=== PATIENT | female | born 1980 | race Caucasian/White ===

== ENCOUNTER 2020-04-25 14:50 | Outpatient (REF) | payer MEDICAID, SELFPAY | END 2020-04-25 14:51 | disposition home or self-care (01) | LOC: HO.LAB 14:50 | PROVIDERS: PCP Nurse Practitioner Family; Visit Provider Student in an Organized Health Care Education/Training Program | DX: R76.8 Other specified abnormal immunological findings in serum (principal); M25.50 Pain in unspecified joint | CPT/HCPCS: 99214 ==

== ENCOUNTER → 2020-06-27 09:01 | Outpatient (BNVA) | payer MEDICAID, SELFPAY | PROVIDERS: PCP Nurse Practitioner Family; Visit Provider Physician Assistant | DX: Z76.89 Persons encountering health services in other specified circumstances (principal) ==

== ENCOUNTER 2020-09-07 09:46 | Day surgery (SDC) | payer MEDICAID, SELFPAY ==
[2020-08-15 15:09] VITALS: BMI 25.6
--- NOTE | 2020-09-06 08:20 | HO.ANESPROP2 ---
Documented by User: Magda Abrams 09/06/20 08:21 HPI - Anesthesia Eval Consult details Narrative: 39yo F for Colonoscopy PMFSH Active Problems Active Problems: All Active Problems (Updated 08/15/20 @ 14:53 by Erica Garcia) Polyarthralgia (Acute) YENNIFER positive (Acute) Tubular adenoma (Acute) Past Medical History Medical History Depression GERD (gastroesophageal reflux disease) Hx of seizure disorder IBS (irritable bowel syndrome) Tubular adenoma Family History Family History Brother Tubular adenoma Surgical History Surgical History H/O colonoscopy History of esophagogastroduodenoscopy (EGD) Social History Social History Alcohol intake: current Alcohol intake frequency: a few times a week Alcohol type: beer Smoking Status: Current every day smoker Tobacco Type: Cigarette Packs Per Day: 0 Cigarettes Per Day: 2 Years Smoked: 15 years Use of substances other than those prescribed or required for medical reasons: No Have you been hit, kicked, punched, or otherwise hurt by someone within the past year? If so, by whom?: No Advance Directives: No Advance Directives Information Provided: No Advance Directives on File: No Meds Allergies Allergy/AdvReac Type Severity Reaction Status Date / Time ranitidine [From ZANTAC] Allergy Severe TINGLING, Verified 09/07/20 10:30 WEAKNESS topiramate [Topamax] Allergy Unknown UNKNOWN Verified 09/07/20 10:30 Home Medications Medication Instructions Recorded Confirmed Last Taken Type acetaminophen 500 mg tablet 500 mg PO Q6H PRN 04/22/20 08/15/20 Unknown History carbamazepine 400 mg 400 mg PO BID 04/22/20 08/15/20 Unknown History tablet,extended release,12 hr cholecalciferol (vitamin D3) 1,250 1,250 mcg PO QWEEK 04/22/20 08/15/20 Unknown History mcg (50,000 unit) tablet ibuprofen 400 mg tablet 400 mg PO TID 04/22/20 08/15/20 Unknown History omeprazole 40 mg capsule,delayed 40 mg PO DAILY 04/22/20 08/15/20 Unknown History release Exam Exam Date and Time: September 06, 2020 0820 Height,Weight and Vital Signs: Height 5 ft 2 in Weight 63.503 kg Assessment and Plan Assessment Anesthesia Assessment: Chart Reviewed Documented by User: Eileen Musa 09/07/20 10:41 PMFSH Past Medical History Medical History Depression GERD (gastroesophageal reflux disease) Hx of seizure disorder IBS (irritable bowel syndrome) Tubular adenoma Family History Family History Brother Tubular adenoma Surgical History Surgical History H/O colonoscopy History of esophagogastroduodenoscopy (EGD) Social History Social History Alcohol intake: current Alcohol intake frequency: a few times a week Alcohol type: beer Smoking Status: Current every day smoker Tobacco Type: Cigarette Packs Per Day: 0 Cigarettes Per Day: 2 Years Smoked: 15 years Use of substances other than those prescribed or required for medical reasons: No Have you been hit, kicked, punched, or otherwise hurt by someone within the past year? If so, by whom?: No Advance Directives: No Advance Directives Information Provided: No Advance Directives on File: No Meds Allergies Allergy/AdvReac Type Severity Reaction Status Date / Time ranitidine [From ZANTAC] Allergy Severe TINGLING, Verified 09/07/20 10:30 WEAKNESS topiramate [Topamax] Allergy Unknown UNKNOWN Verified 09/07/20 10:30 Home Medications Medication Instructions Recorded Confirmed Last Taken Type acetaminophen 500 mg tablet 500 mg PO Q6H PRN 04/22/20 08/15/20 Unknown History carbamazepine 400 mg 400 mg PO BID 04/22/20 08/15/20 Unknown History tablet,extended release,12 hr cholecalciferol (vitamin D3) 1,250 1,250 mcg PO QWEEK 04/22/20 08/15/20 Unknown History mcg (50,000 unit) tablet ibuprofen 400 mg tablet 400 mg PO TID 04/22/20 08/15/20 Unknown History omeprazole 40 mg capsule,delayed 40 mg PO DAILY 04/22/20 08/15/20 Unknown History release Exam Airway Mallampati Class: II TM Dist: >3cm Denture: Upper Heart: RRR Lungs: CTA
[2020-09-07 10:01] VITALS: BP 125/75; PULSE 55; RESP 16; TEMP 36; O2SAT 100
[2020-09-07 10:15] LABS: UPreg QC Valid YES; Urine Pregnancy NEGATIVE (NEGATIVE)
--- NOTE | 2020-09-07 10:22 | P.HPSUR_ITS ---
Pre-Procedural Eval Section B Chief Complaint: hx tubular adenoma Details of Present Illness: Hx tubular adenoma Brother younger-hx polyp No clinical changes since June preprocedure visit. Relevant Family History (Specify if Yes): Yes Relevant Social History: Tobacco Use (2 cigarettes daily) Present Medications: see Short Stay Collaborative assessment Medical History: Significant History (GERD, Seizure disorder since age 7 on Carbamazine) History of Previous Operations: Relevant previous surgery/procedure and date(s) (egd and naxd=[id number]) Allergies: Allergies Allergy/AdvReac Type Severity Reaction Status Date / Time ranitidine [From ZANTAC] Allergy Severe TINGLING, Verified 08/15/20 14:53 WEAKNESS topiramate [Topamax] Allergy Unknown UNKNOWN Verified 08/15/20 14:53 Review of Systems Sugical H&P ROS: Negative: Constitution, Cardiovascular, Respiratory and Psychiatric and Yes, Specify: Neurological (Hx of seizure disorder age 7), Gastrointestinal (GERD), Musculoskeletal and Integumentary Exam Surgical H&P Exam: Normal: HEENT, Normal: Heart, Normal: Lungs, Normal: Ex tremities and Normal: Abdomen Plan Diagnosis/Plan: Unchanged I have reviewed the history and physical and performed a pertinent physical examination on my patient. No changes have occurred unless specified.yes.
[2020-09-07 10:28] VITALS: BMI 26.3
[2020-09-07] MEDS: Lactated Ringers 1,000 ML 100 ML IVCONT (10:28)
--- NOTE | 2020-09-07 11:12 | PM.OP ---
Brief Operative Note Date of Service: 09/07/20 Pre-op diagnosis: Hx tubulovillous and tubular adenoma-3yrs No changes from preprocedure visit Post-op diagnosis: other (Hx polyps, Minor Diverticulosis) Procedure: Colonoscopy Implants: NONE Surgeon: Naa Gordon MD Anesthesia: MAC ([facility]) Estimated blood loss (mL): 0 Pathology: none sent Condition: stable Disposition: PACU
[2020-09-07 11:14] VITALS: BP 115/66; PULSE 62; RESP 16; TEMP 36.5; O2SAT 99
[2020-09-07 11:38] VITALS: BP 122/76; PULSE 57; RESP 16; TEMP 36.5; O2SAT 100
--- NOTE | 2020-09-07 12:34 | W.PM.OPN ---
Operative Note Operative Note Date of Service: 09/07/20 Narrative: Pre-op diagnosis: Hx tubulovillous and tubular adenoma-3yrs No changes from preprocedure visit Post-op diagnosis: other (Hx polyps, Minor Diverticulosis) Procedure: Colonoscopy Implants: NONE Surgeon: Naa Gordon MD Anesthesia: MAC ([facility] [place]) FINDINGS: LINDY: GOOD SPHINCTER TONE SCOPE easily entered rectosigmoid and advanced through descending, transverse, ascending colon down into the cecum. There were 2 pill ghosts obscuring detailed view of the AO. Valve was well seen. PREP: GOOD--GENTLE FLUSHING IN PROX ASCENDING COLON AND CECUM--WITH GOOD VISIBILITY Slow rotational views on withdrawal of scope. No mucosal lesions seen. Areas where previous polyps had been removed appeared clear. ARV--clear. Estimated blood loss (mL): 0 Pathology: none sent Condition: stable Disposition: PACU PLAN: REPEAT COLON CANCER SCREENING IN 5 YEARS. This should be scheduled with Dr. Meier. Patient mentioned some problems with constipation. I suggested if she found this to be persisten she could be reseen in the office for IBS/or constipation.
== END 2020-09-07 12:28 | disposition home or self-care (01) ==
PROVIDERS: Nurse Practitioner; Visit Provider Internal Medicine Gastroenterology
PROC: 0DJD8ZZ Inspection of Lower Intestinal Tract, Via Natural or Artificial Opening Endoscopic (ICD-10-PCS; CPT 45378; principal; 2020-09-07 11:00)
DX: Z12.11 Encounter for screening for malignant neoplasm of colon (principal); Z86.010 Personal history of colon polyps; Z83.71 Family history of colonic polyps; K57.30 Diverticulosis of large intestine without perforation or abscess without bleeding; K21.9 Gastro-esophageal reflux disease without esophagitis; K58.9 Irritable bowel syndrome, unspecified; G40.909 Epilepsy, unspecified, not intractable, without status epilepticus; M25.50 Pain in unspecified joint; F32.9 Major depressive disorder, single episode, unspecified; F17.210 Nicotine dependence, cigarettes, uncomplicated; Z79.899 Other long term (current) drug therapy; Z88.8 Allergy status to other drugs, medicaments and biological substances
CPT/HCPCS: 45378; 81025

== ENCOUNTER → 2020-09-28 13:31 | Outpatient (BNVA) | payer MEDICAID, SELFPAY | PROVIDERS: PCP Nurse Practitioner Family; Visit Provider Physician Assistant ==

== ENCOUNTER → 2020-11-28 11:57 | Outpatient (BNVA) | payer MEDICAID, SELFPAY | PROVIDERS: PCP Nurse Practitioner Family; Visit Provider Physician Assistant ==

== ENCOUNTER 2021-01-03 13:25 | Outpatient (REF) | payer MEDICAID, SELFPAY ==
--- NOTE | ~2021-01-03 | MM_ITS ---
EXAMINATION: MM SCREENING DIGITAL BREAST TOMOSYNTHESIS, BILATERAL CLINICAL INFORMATION: Screening. Asymptomatic. Age 40. No prior breast imaging. No known family history breast cancer. The lifetime risk of breast cancer based on the Tyrer-Cuzick Model is 8%. COMPARISON: None (current study represents initial baseline exam). TECHNIQUE: Digital breast tomosynthesis is performed in both the craniocaudal and mediolateral oblique views along with computer-aided detection (CAD). Synthesized 2D images are generated from the tomosynthesis. FINDINGS: The breasts are heterogeneously dense, which may obscure small masses (ACR BI-RADS breast composition Category c). There is a 0.6 cm nodular asymmetric density posterior medial right breast lower quadrant on tomography with ill-defined anterior margin. There is no correlate on the right MLO view. Patient will be recalled to further characterize. The remainder of the breasts show no mass or architectural abnormality. There are no abnormal calcifications. The axilla and skin contours are unremarkable. MM/MM tomosynthesis screening BI IMPRESSION: 1. Right: Nodular asymmetric density posterior medial right breast on CC view. 2. Left: No mammographic evidence of malignancy. ASSESSMENT: BI-RADS 0: Incomplete - Need Additional Imaging Evaluation RECOMMENDATION: 1. Additional views of the right breast (3D spot CC, 3D ML). 2. Targeted ultrasound if warranted after review of the additional views. 3. Radiology department staff will contact the patient for additional imaging. This patient's information was entered into a reminder system with a target due date for their next mammogram.
== END 2021-01-03 13:26 | disposition home or self-care (01) ==
LOC: HO.MAMMO 13:25
PROVIDERS: Visit Provider Registered Nurse
DX: Z12.31 Encounter for screening mammogram for malignant neoplasm of breast (principal)
CPT/HCPCS: 77063; 77067

== ENCOUNTER 2021-01-15 10:24 | Outpatient (REF) | payer MEDICAID, SELFPAY ==
--- NOTE | ~2021-01-15 | MM_ITS ---
EXAMINATION: MM BREAST DIAGNOSTIC DIGITAL TOMOSYNTHESIS, RIGHT US BREAST TARGETED, RIGHT CLINICAL INFORMATION: Call back for nodular density. COMPARISON: Mammography: 2020 TECHNIQUE: Digital breast tomosynthesis is performed. 2D images are generated from the tomosynthesis. The following views are obtained: Full-field 90 degree right breast mammogram. Right breast spot compression craniocaudal view. Targeted right breast ultrasound. FINDINGS: The breasts are heterogeneously dense, which may obscure small masses (ACR BI-RADS breast composition Category c). Spot compression images demonstrate persistence of a mass which appears to lie within the deep slightly medial and inferior aspect of the right breast. There is question of 2 mm nodulation associated with the mass measuring 7 x 6 mm in size. No fatty cleft is identified to suggest normal fat-containing lymph node. There is a question of calcifications about the lesion and therefore spot magnification films were performed demonstrating that there are no persistent calcifications identified. Targeted right breast ultrasound did not demonstrate any abnormal cystic or solid masses. No region of abnormal distal sound shadowing was appreciated. The lesion lies deep near the chest wall and would be very difficult, if possible, to do a stereotactic core biopsy. It would need to be targeted on craniocaudal view since I cannot definitely say densities on the mediolateral oblique and 90 degrees mediolateral view are the lesions seen on craniocaudal view. Would recommend breast MRI for further evaluation to see if the lesion is suspicious. If MRI is not done, then would consider attempt at stereotactic core biopsy. Patient was nervous about having 6 month follow-up study instead of further workup. Results are discussed with the patient at time of visit. MM/MM tomosynthesis added views R IMPRESSION: Indeterminate density right breast for which breast MRI would be of help in further evaluation. If this is not performed, recommend attempt at stereotactic core biopsy as described. If stereotactic core biopsy is unable to be performed then would consider needle localization and surgical excision. ASSESSMENT: BI-RADS 0: Incomplete - Need Additional Imaging Evaluation RECOMMENDATION: Breast MRI as described above. This patient's information was entered into a reminder system with a target due date for their next mammogram.
--- NOTE | ~2021-01-15 | US_ITS ---
EXAMINATION: US DIAGNOSTIC ULTRASOUND BREAST, RIGHT as supplement to right breast mammography. CLINICAL INFORMATION: Right breast density. COMPARISON: Mammography of January 15, 2021 and January 03, 2021. TECHNIQUE: Ultrasound of the breast is performed with real-time read scale imaging and color Doppler. FINDINGS: Targeted right breast ultrasound did not demonstrate any abnormal cystic or solid masses. No region of abnormal distal sound shadowing was appreciated. The lesion lies deep to the chest wall and would be very difficult if possible to do a stereotactic core biopsy. It would need to be targeted on craniocaudal view since I cannot definitely say densities on the mediolateral oblique and 90 degrees mediolateral view are the lesions seen on craniocaudal view Would recommend breast MRI for further evaluation to see if the lesion is suspicious. If MRI is not done then would consider attempt at stereotactic core biopsy. Patient was nervous about having 6 month follow-up study instead of further workup. Results are discussed with the patient at time of visit. US/US breast RT limited IMPRESSION: Indeterminate density right breast for which breast MRI would be of help in further evaluation. If this is not performed recommend attempt at stereotactic core biopsy as described. Stereotactic core biopsy is unable to be performed and would consider needle localization and surgical excision. ASSESSMENT: BI-RADS 0: Incomplete - Need Additional Imaging Evaluation RECOMMENDATION: Breast MRI as described above.
== END 2021-01-15 10:25 | disposition home or self-care (01) ==
LOC: HO.MAMMO 10:24
PROVIDERS: Visit Provider Registered Nurse
DX: N64.89 Other specified disorders of breast (principal)
CPT/HCPCS: 76642; 77061; 77065

== ENCOUNTER 2021-01-30 11:11 | Outpatient (REF) | payer MEDICAID, SELFPAY ==
--- NOTE | ~2021-01-30 | MR_ITS ---
EXAMINATION: MR BREAST WITHOUT AND WITH CONTRAST, BILATERAL CLINICAL INFORMATION: 40-year-old for additional imaging for an indeterminant mass in the lower inner aspect of the right breast. COMPARISON: Correlation to mammogram and ultrasound of 01/03/2021 and 01/15/2021. TECHNIQUE: Imaging was performed with a dedicated breast coil. Prior to the administration of contrast, bilateral axial T1 and bilateral axial T2 weighted sequences were obtained. After the uneventful administration of?7 mL of Gadavist, dynamic contrast-enhanced VIBRANT series through the breasts in the axial plane were performed. Subtracted images were performed and reviewed. A delayed sagittal sequence through both breasts was acquired. Additionally, CAD post-processing, including maximum intensity projections, 3-D reconstructions and kinetic analysis, were performed an independent workstation and reviewed by the interpreting radiologist is a portion of this exam. FINDINGS: The patient's fibroglandular tissue demonstrates moderate background enhancement. LEFT BREAST: No suspicious masslike or non-masslike enhancement. No abnormal skin thickening or nipple retraction. No abnormal architectural distortion. Review of the T2 weighted images demonstrates no fibrocystic changes or dilated ducts. Review of kinetic images reveals no additional findings. RIGHT BREAST: There are several oval enhancing T2 bright masses. In the 1 o'clock position, 6.5 cm from the nipple, in the 2 o'clock position, 6.1 cm from the nipple, in the 12 o'clock position. 5.4 cm from the nipple, in the 9 o'clock position, 6.8 cm from the nipple, and in the 5 o'clock position, 7.8 cm from the nipple. These all demonstrate subthreshold-type kinetics. They have characteristics of either small fibroadenomas or complicated cysts. The focus in the 5 o'clock position, 7.8 cm from the nipple may correspond to the mass described on mammography. Because of the multiplicity of these similar-appearing masses, they are most likely probably benign. There are no areas of mass or non-mass enhancement suspicious of malignancy. There are no secondary signs of malignancy. There are no additional findings on T2-weighted imaging or kinetic curve analysis. There is no suspicious internal mammary chain or axillary adenopathy. Limited views of the chest and abdomen are unremarkable. MR/MR breast BI wo/w con IMPRESSION: Multiple enhancing T2 bright masses and foci in the right breast, 1 o'clock, 2 o'clock, 12 o'clock, 9 o'clock and 5 o'clock positions. These have probably benign characteristics. The focus in the 5 o'clock position appears to correspond to the finding on the mammogram. ASSESSMENT: LEFT BREAST: BI-RADS 1 - Negative. RIGHT BREAST: BI-RADS 3 - Probably benign, short-interval follow-up. RECOMMENDATIONS: A short-interval follow-up MRI in 6 months to assess stability of these findings. A short-interval follow-up right breast mammogram should also be obtained.
== END 2021-01-30 11:12 | disposition home or self-care (01) ==
LOC: HO.MRI 11:11
PROVIDERS: PCP Nurse Practitioner Family; Visit Provider Registered Nurse
DX: R92.8 Other abnormal and inconclusive findings on diagnostic imaging of breast (principal)
CPT/HCPCS: 77049; A9585

== ENCOUNTER → 2021-03-01 10:15 | Outpatient (BNVA) | payer MEDICAID, SELFPAY | PROVIDERS: Visit Provider Physician Assistant ==

== ENCOUNTER 2021-03-23 13:59 | Outpatient (REF) | payer MEDICAID, SELFPAY | END 2021-03-23 14:00 | disposition home or self-care (01) | LOC: HO.LAB 13:59 | PROVIDERS: Visit Provider Internal Medicine | DX: Z20.822 Contact with and (suspected) exposure to COVID-19 (principal) | CPT/HCPCS: C9803; U0003; U0005 ==

== ENCOUNTER 2021-05-16 13:58 | Outpatient (REF) | payer MEDICAID, SELFPAY | END 2021-05-16 13:59 | disposition home or self-care (01) | LOC: HO.LAB 13:58 | PROVIDERS: Visit Provider Internal Medicine | DX: Z20.822 Contact with and (suspected) exposure to COVID-19 (principal) | CPT/HCPCS: C9803; U0003; U0005 ==

== ENCOUNTER 2021-08-14 13:56 | Outpatient (REF) | payer MEDICAID, SELFPAY ==
--- NOTE | ~2021-08-14 | MM_ITS ---
EXAMINATION: MM DIAGNOSTIC DIGITAL BREAST TOMOSYNTHESIS, RIGHT CLINICAL INFORMATION: Short interval six-month follow-up mammography for probable benign nodule posterior 5:00 right breast initially noted at baseline screening. No known family history breast cancer. TC score 8%. COMPARISON: Mammography: 01/15/2021, 01/03/2021 (BI-RADS 0); targeted right breast ultrasound 01/15/2021, MRI breasts without and with contrast 01/30/2021. TECHNIQUE: Digital breast tomosynthesis is performed in both the craniocaudal and mediolateral oblique views along with computer-aided detection (CAD). Synthesized 2D images are generated from the tomosynthesis. Additional right CC view is provided. FINDINGS: The breasts are heterogeneously dense, which may obscure small masses (ACR BI-RADS breast composition Category c). Parenchymal pattern is similar to prior studies. Smooth nodule posterior 5:00 position and is similar to prior baseline mammography. There is no increasing nodule or change in margins. On MRI, lesion is high signal on T2 with subthreshold type kinetics, possibly fibroadenoma. Other similar appearing mass is noted on MRI right breast, probably benign. MRI report suggested MR follow-up in 6 months. Results are provided to the patient at time of visit by the technologist. MM/MM tomosynthesis diagnostic RT IMPRESSION: Nodule posterior 5:00 position is similar to baseline exam. ASSESSMENT: BI-RADS 3: Probably Benign RECOMMENDATION: 1. Diagnostic mammography at time of annual bilateral exam, due in 6 months. 2. MRI report suggests follow-up MR for multiplicity of lesions. The This patient's information was entered into a reminder system with a target due date for their next mammogram.
== END 2021-08-14 13:57 | disposition home or self-care (01) ==
LOC: HO.MAMMO 13:56
PROVIDERS: PCP Nurse Practitioner; Visit Provider Nurse Practitioner
DX: N63.14 Unspecified lump in the right breast, lower inner quadrant (principal)
CPT/HCPCS: 77061; 77065

== ENCOUNTER 2023-03-06 15:00 | Outpatient (AMB) | payer MEDICAID, SELFPAY ==
--- NOTE | 2023-03-06 15:03 | MHC.OFFVIS ---
Intake Vital Signs 03/06/23 15:04 Height 5 ft 2 in Weight 166 lb 10.711 oz BMI 30.5 BP 158/94 H Blood Pressure Location Rt brachial Position Sitting Pulse 60 Pulse Source Pulse Oximeter Temp 97 F Temp Source Skin Pulse Oximetry (%) 98 Intake Visit Reasons: +YENNIFER/Joint pain Intake Note: Here for +YENNIFER and joint pain follow up. Former patient [facility] [place]. c/o red spots, hair loss, brit leg swelling, body aches, facial redness s/p sun exposure [employer] Furniture [employer] Required: No Accompanied by: Sister Allergies ranitidine [From ZANTAC] Allergy (Severe, Verified 03/06/23 15:09) TINGLING, WEAKNESS topiramate [Topamax] Allergy (Unknown, Verified 03/06/23 15:09) UNKNOWN Medication List - Last Reconciled 03/06/23 by Nino Leblanc MD acetaminophen (Tylenol Extra Strength) 500 mg PO Q6H PRN carbamazepine ER 400 mg PO BID diclofenac sodium 1% 2 grams topical ibuprofen 400 mg PO TID omeprazole 40 mg PO DAILY HPI HPI Comments History of Present Illness Details This is a 42-year-old female who presents for evaluation of a positive YENNIFER in the setting of diffuse body pain. Patient states that she gets flares of generalized fatigue, joint pain, pain in her skin when anything touches her, these happen 3 to 4 times a month and can last from 2-4 days. She also states that she gets rashes on her face when exposed to the sun. She also gets rashes on her feet. She admits to mouth ulcers. Patient also has braces. She denies Raynaud's. She denies any history of DVT/PE. Mentions that her niece has SLE. She has knee pain worse when getting up after sitting down. She takes Tylenol 1000 mg once or twice a day. Ibuprofen causes GI upset. [facility] Medical History (Updated 03/06/23 @ 15:46 by Nino Leblanc MD) Chronic constipation Chronic GERD Depression GERD (gastroesophageal reflux disease) Hx of seizure disorder IBS (irritable bowel syndrome) Tubular adenoma Surgical History H/O colonoscopy History of esophagogastroduodenoscopy (EGD) Family History Brother Tubular adenoma Sister Heart disease Mother Lung disease Fibromyalgia Father No problems noted. Social History Household Members: Children Alcohol intake: current Alcohol intake frequency: a few times a week Alcohol type: beer Cigarette Packs Per Day: 0 Cigarettes Per Day: 2 Years Smoked: 15 years Current occupational status: disabled Female Reproductive History Menstrual Total pregnancies: 2 Review of Systems Const Reports fatigue and Reports weakness Eyes Reports dry eyes ENT Reports hoarseness and Reports tinnitus GI Reports heartburn and Reports nausea Musc Reports arthralgias Skin/Breast Reports rash Neuro Reports weakness Psych Reports anxiety and Reports depression Endo Reports fatigue and Reports polydipsia Physical Exam Vital Signs: Last Vital Signs Temp 97 F 03/06/23 15:04 Pulse 60 03/06/23 15:04 BP 158/94 H 03/06/23 15:04 Pulse Ox 98 03/06/23 15:04 BMI result Body Mass Index 30.5 Const General: cooperative, healthy appearing and comfortable Nutritional Appearance: overweight Orientation/consciousness: patient oriented x3 Limitations: no limitations HEENT Other: Has braces Head: Yes normocephalic and Yes atraumatic Mouth: moist mucous membranes Resp Effort & Inspection: normal respiratory effort and able to speak in complete sentences Auscultation: clear to auscultation bilaterally Skin General skin exam: no rashes or lesions noted Neuro General: patient oriented x3 Extrem Other: Nose swollen joints Negative MCP squeeze test bilaterally Right 5th MCP tenderness and extensor tendon tenderness Normal nailfold capillaroscopy Assessment & Plan Assessment & Plan (1) YENNIFER positive: Code(s): R76.8 - Other specified abnormal immunological findings in serum Plan: This is a 42-year-old female who presents for evaluation of a positive YENNIFER 1-320 nucleolar pattern. Patient states that she gets flares of diffuse pain, fatigue, intermittent skin rashes on her face worse with sun exposure. Per patient her niece was diagnosed with SLE. Will order comprehensive serology to screen for underlying autoimmune rheumatic disease. Advised patient to get labs done when she feels like she is having a flare. Check bilateral knee x-rays to a evaluate knee osteoarthritis. Advised patient to use Tylenol can take up to 3000 mg a day. Try Voltaren gel 4 times daily Plan I spent 30 minutes reviewing patient's chart, evaluating patient, ordering diagnostic workup, counseling patient and documenting in the chart Orders: Orders Comprehensive Met. Panel Today M32.9 - Systemic lupus erythematosus, unspecified C Reactive Protein Today M32.9 - Systemic lupus erythematosus, unspecified Protein Creatinine Ratio, Ur Today M32.9 - Systemic lupus erythematosus, unspecified Complete Blood Count Auto Diff Today M32.9 - Systemic lupus erythematosus, unspecified Erythrocyte Sedimentation Rate Today M32.9 - Systemic lupus erythematosus, unspecified Complement C3 Today M32.9 - Systemic lupus erythematosus, unspecified Complement C4 Today M32.9 - Systemic lupus erythematosus, unspecified Anti DNA DS Antibody Today M32.9 - Systemic lupus erythematosus, unspecified Anti Extractable Nuclear Ag Today M32.9 - Systemic lupus erythematosus, unspecified Scleroderma 70 Antibody Today M32.9 - Systemic lupus erythematosus, unspecified Sjogren's Antibodies Today M32.9 - Systemic lupus erythematosus, unspecified UA w Microscopic Today M32.9 - Systemic lupus erythematosus, unspecified Coding Level of Care Code Est Pt Level 4 (35316) Diagnoses YENNIFER positive R76.8
[2023-03-06 15:04] VITALS: BP 158/94; PULSE 60; TEMP 36.1; O2SAT 98; BMI 30.5
== END 2023-03-06 15:39 | disposition home or self-care (01) ==
PROVIDERS: PCP Family Medicine; Visit Provider Student in an Organized Health Care Education/Training Program
DX: R76.8 Other specified abnormal immunological findings in serum (principal)
CPT/HCPCS: 99214

== ENCOUNTER → 2023-03-06 15:00 | Outpatient (BNVA) | payer MEDICAID, SELFPAY | PROVIDERS: PCP Family Medicine; Visit Provider Student in an Organized Health Care Education/Training Program | DX: R76.8 Other specified abnormal immunological findings in serum (principal) | CPT/HCPCS: 99212 ==

== ENCOUNTER 2023-06-16 13:51 | Outpatient (REF) | payer MEDICAID, SELFPAY ==
[2023-06-16 14:11] LABS: MANUAL DIFF FLAG NO
[2023-06-16 14:28] LABS: Basophils Percent Auto 0.4 % (0-2); Eosinophils Absolute Auto 0.1 X10*3/uL (0.0-0.4); Hematocrit 36.9 % (37.0-47.0); Hemoglobin 12.3 g/dl (12.0-16.0); Imm Gran Abs Auto 0.02 X10*3/uL (0.00-0.03); Imm Gran Pct Auto 0.4 % (0.0-0.4); Lymphocytes Absolute Auto 1.7 X10*3/uL (1.2-4.9); Lymphocytes Percent Auto 33.1 % (20-40); Mean Corpuscular HGB Conc 33.3 g/dl (31.0-35.0); Mean Platelet Volume 9.3 fL (9.4-12.3); Monocytes Absolute Auto 0.5 X10*3/uL (0.1-1.2); Monocytes Percent Auto 9.9 % (2-11); Neutrophils Absolute Auto 2.9 x10*3/uL (2.0-8.3); Neutrophils Percent Auto 55.2 % (45-73); Platelet Count 258 X10*3/uL (160-400); Red Cell Distribution Width 14.3 % (11.0-16.0); White Blood Count 5.2 X10*3/uL (4.8-10.8)
[2023-06-16 14:53] LABS: Alanine Aminotransferase 15 U/L (0-31); Albumin Level 4.3 g/dL (3.5-5.0); Alkaline Phosphatase 66 U/L (39-117); Anion Gap 10 (12-20); Aspartate Amino Transferase 25 U/L (5-31); Bilirubin Total 0.3 mg/dL (0.0-1.0); Blood Urea Nitrogen 9 mg/dL (9-16); Calcium 9.4 mg/dL (8.4-10.2); Carbon Dioxide 28 mmol/L (22-29); Chloride 104 mmol/L (96-108); Estimated Glomerular Filt Rate > 60; Glucose Random 150 mg/dL (60-115); Potassium 3.6 mmol/L (3.3-5.1); Sodium 138 mmol/L (135-145); Total Protein 7.7 g/dL (6.5-8.0)
[2023-06-16 15:05] LABS: Appearance Urine Cloudy; Color Urine Yellow; Glucose Urine UA Negative (Negative); Leukocyte Esterase Urine Negative (Negative); Nitrite Urine Negative (Negative); PH 6.5 (5.0-9.0); Urine Blood Negative (Negative); Urine Ketones Negative (Negative); Urine Protein Negative (Neg-Trace)
[2023-06-16 15:12] LABS: Erythrocyte Sedimentation Rate 18 MM/HR (0-20)
[2023-06-16 15:13] LABS: Bacteria Urine None Seen (None Seen); Hyaline Casts Urine 0-2 /LPF (0-2); RBC Urine 0-2 /HPF (0-2); Squamous Epithelial Cell Urine 0-2 /HPF (0-2); WBC Urine 0-5 /HPF (0-5)
[2023-06-16 15:21] LABS: Creatinine Urine 90.02 mg/dL; Total Protein Urine Random < 7 mg/dL (<12)
[2023-06-17 12:53] LABS: Complement C3 105 mg/dL (83-193)
[2023-06-18 13:14] LABS: Anti DNA DS Antibody <1 IU/mL; Antibody to SS-A Antigen <1.0 NEG AI (<1.0 NEG); Antibody to SS-B Antigen <1.0 NEG AI (<1.0 NEG); SM/Ribonucleoprotein Ab <1.0 NEG AI (<1.0 NEG); Scleroderma 70 Antibody <1.0 NEG AI (<1.0 NEG); Smith Protein <1.0 NEG AI (<1.0 NEG)
== END 2023-06-16 13:52 | disposition home or self-care (01) ==
LOC: HO.LAB 13:51
PROVIDERS: Visit Provider Student in an Organized Health Care Education/Training Program
DX: M32.9 Systemic lupus erythematosus, unspecified (principal)
CPT/HCPCS: 36415; 80053; 81001; 82570; 84156; 85025; 85652; 86140; 86160; 86225; 86235

== ENCOUNTER 2023-07-07 13:16 | Outpatient (AMB) | payer MEDICAID, SELFPAY ==
--- NOTE | 2023-07-07 13:17 | MHC.OFFVIS ---
Intake Vital Signs 07/07/23 13:18 Height 5 ft 2 in Weight 165 lb 2.02 oz BMI 30.2 BP 116/78 Blood Pressure Location Rt brachial Position Sitting Pulse 82 Pulse Source Pulse Oximeter Intake Visit Reasons: Discuss lab result Intake Note: Pt last seen 03/06/23, presents today for follow up and test results. Patient reports she does take Biotin and states she is unsure how much milligrams. Pediatric Nephrologist Required: No Allergies ranitidine [From ZANTAC] Allergy (Severe, Verified 07/07/23 13:19) TINGLING, WEAKNESS topiramate [Topamax] Allergy (Unknown, Verified 07/07/23 13:19) UNKNOWN Medication List - Last Reconciled 07/07/23 by Nino Leblanc MD acetaminophen (Tylenol Extra Strength) 500 mg PO Q6H PRN carbamazepine ER 400 mg PO BID diclofenac sodium 1% 2 grams topical multivitamin 1 tab PO DAILY HPI HPI Comments History of Present Illness Details Patient returns for follow-up after completion of her blood work. She states that about 2 weeks ago she was having generalized fatigue, body aches, pain and swelling of her entire right lower extremity, she keeps getting intermittent rashes on her face that are itchy and burning. She has been having cracked skin on the external aspect of her knuckles that intermittently bleed. Initial history: This is a 42-year-old female who presents for evaluation of a positive YENNIFER in the setting of diffuse body pain. Patient states that she gets flares of generalized fatigue, joint pain, pain in her skin when anything touches her, these happen 3 to 4 times a month and can last from 2-4 days. She also states that she gets rashes on her face when exposed to the sun. She also gets rashes on her feet. She admits to mouth ulcers. Patient also has braces. She denies Raynaud's. She denies any history of DVT/PE. Mentions that her niece has SLE. She has knee pain worse when getting up after sitting down. She takes Tylenol 1000 mg once or twice a day. Ibuprofen causes GI upset. [facility] Medical History Chronic GERD Chronic constipation Hx of seizure disorder IBS (irritable bowel syndrome) GERD (gastroesophageal reflux disease) Depression Tubular adenoma Surgical History H/O colonoscopy History of esophagogastroduodenoscopy (EGD) Family History Brother Tubular adenoma Sister Heart disease Mother Lung disease Fibromyalgia Father No problems noted. Social History Household Members: Children Alcohol intake: current Alcohol intake frequency: a few times a week Alcohol type: beer Cigarette Packs Per Day: 0 Cigarettes Per Day: 2 Years Smoked: 15 years Current occupational status: disabled Review of Systems Const Reports fatigue and Reports weakness Eyes Reports dry eyes GI Reports heartburn and Reports nausea Musc Reports arthralgias Skin/Breast Reports rash Neuro Reports weakness Psych Reports anxiety and Reports depression Endo Reports fatigue Physical Exam Vital Signs: Last Vital Signs Pulse 82 07/07/23 13:18 BP 116/78 07/07/23 13:18 BMI result Body Mass Index 30.2 Const General: cooperative, healthy appearing and comfortable Nutritional Appearance: overweight Orientation/consciousness: patient oriented x3 Limitations: no limitations HEENT Other: Has braces Head: Yes normocephalic and Yes atraumatic Mouth: moist mucous membranes Resp Effort & Inspection: normal respiratory effort and able to speak in complete sentences Auscultation: clear to auscultation bilaterally Skin Other: Few erythematous rashes on face Dry cracked skin on knuckles Neuro General: patient oriented x3 Extrem Other: No active synovitis today No fibromyalgia tender points Right elbow pain with full extension Normal nailfold capillaroscopy Assessment & Plan Assessment & Plan (1) SLE (systemic lupus erythematosus): Code(s): M32.9 - Systemic lupus erythematosus, unspecified Qualifiers: Systemic lupus erythematosus type: other Systemic lupus erythematosus organ involvement: unspecified Qualified Code(s): M32.8 - Other forms of systemic lupus erythematosus Plan: This is a 42-year-old female who presents for evaluation of a positive YENNIFER 1-320 nucleolar pattern.? Patient states that she gets flares of diffuse joint pain, fatigue, intermittent skin rashes on her face worse with sun exposure.? She has a niece with SLE. Labs are unremarkable except for positive YENNIFER and mildly elevated CRP when in a flare. I would like to start treatment for UCTD/mild lupus. Discussed risks and benefits of hydroxychloroquine. Start hydroxychloroquine 200 mg Twice daily Labs before next visit in 3 months (2) Long-term use of hydroxychloroquine: Code(s): Z79.899 - Other half-way (current) drug therapy Plan: Discussed risk of retinopathy associated with hydroxychloroquine. Advised patient to make appointment with her stores despatch hand Plan I spent 30 minutes reviewing patient's chart, evaluating patient, ordering diagnostic workup, counseling patient and documenting in the chart Orders: Orders Complement C4 3 Months M32.9 - Systemic lupus erythematosus, unspecified, Z79.899 - Other terminal operations supervisor (current) drug therapy Complete Blood Count Auto Diff 3 Months M32.9 - Systemic lupus erythematosus, unspecified, Z79.899 - Other terminal operations supervisor (current) drug therapy Anti DNA DS Antibody 3 Months M32.9 - Systemic lupus erythematosus, unspecified, Z79.899 - Other half-way (current) drug therapy Complement C3 3 Months M32.9 - Systemic lupus erythematosus, unspecified, Z79.899 - Other terminal operations supervisor (current) drug therapy Erythrocyte Sedimentation Rate 3 Months M32.9 - Systemic lupus erythematosus, unspecified, Z79.899 - Other half-way (current) drug therapy Protein Creatinine Ratio, Ur 3 Months M32.9 - Systemic lupus erythematosus, unspecified, Z79.899 - Other terminal operations supervisor (current) drug therapy UA w Microscopic 3 Months M32.9 - Systemic lupus erythematosus, unspecified, Z79.899 - Other terminal operations supervisor (current) drug therapy Comprehensive Met. Panel 3 Months M32.9 - Systemic lupus erythematosus, unspecified, Z79.899 - Other half-way (current) drug therapy C Reactive Protein 3 Months M32.9 - Systemic lupus erythematosus, unspecified, Z79.899 - Other terminal operations supervisor (current) drug therapy Medications: New hydroxychloroquine 200 mg PO BID 60 tabs 2RF Coding Level of Care Code Est Pt Level 4 (79755) Diagnoses Other forms of systemic lupus erythematosus, unspecified organ involvement status M32.8 Systemic lupus erythematosus type: other Systemic lupus erythematosus organ involvement: unspecified Long-term use of hydroxychloroquine Z79.899
[2023-07-07 13:18] VITALS: BP 116/78; PULSE 82; BMI 30.2
== END 2023-07-07 13:48 | disposition home or self-care (01) ==
PROVIDERS: PCP Registered Nurse; Visit Provider Student in an Organized Health Care Education/Training Program
DX: M32.8 Other forms of systemic lupus erythematosus (principal); Z79.899 Other long term (current) drug therapy
CPT/HCPCS: 99214

== ENCOUNTER → 2023-07-07 13:16 | Outpatient (BNVA) | payer MEDICAID, SELFPAY | PROVIDERS: PCP Registered Nurse; Visit Provider Student in an Organized Health Care Education/Training Program | DX: M32.8 Other forms of systemic lupus erythematosus (principal); Z79.899 Other long term (current) drug therapy | CPT/HCPCS: 99212 ==

== ENCOUNTER 2023-10-06 12:28 | Outpatient (REF) | payer MEDICAID, SELFPAY ==
[2023-10-06 13:05] LABS: MANUAL DIFF FLAG NO
[2023-10-06 13:44] LABS: Basophils Percent Auto 0.6 % (0-2); Eosinophils Absolute Auto 0.1 X10*3/uL (0.0-0.4); Eosinophils Percent Auto 1.3 % (0-4); Hematocrit 37.3 % (37.0-47.0); Hemoglobin 12.5 g/dl (12.0-16.0); Imm Gran Abs Auto 0.02 X10*3/uL (0.00-0.03); Imm Gran Pct Auto 0.4 % (0.0-0.4); Lymphocytes Absolute Auto 1.6 X10*3/uL (1.2-4.9); Lymphocytes Percent Auto 35.3 % (20-40); Mean Corpuscular HGB Conc 33.5 g/dl (31.0-35.0); Mean Corpuscular Hemoglobin 30.4 pg (27.0-33.0); Mean Corpuscular Volume 90.8 fL (80.0-98.0); Mean Platelet Volume 9.2 fL (9.4-12.3); Monocytes Absolute Auto 0.4 X10*3/uL (0.1-1.2); Neutrophils Absolute Auto 2.5 x10*3/uL (2.0-8.3); Neutrophils Percent Auto 54.4 % (45-73); Platelet Count 261 X10*3/uL (160-400); Red Blood Count 4.11 X10*6/uL (4.20-5.50); Red Cell Distribution Width 13.2 % (11.0-16.0); White Blood Count 4.7 X10*3/uL (4.8-10.8)
[2023-10-06 13:50] LABS: Appearance Urine Clear; Color Urine Yellow; Glucose Urine UA 250 mg/dL (Negative); Leukocyte Esterase Urine Negative (Negative); Nitrite Urine Negative (Negative); Specific Gravity - Urine >= 1.030 (1.005-1.025); Urine Blood Negative (Negative); Urine Ketones Negative (Negative); Urine Protein Trace mg/dL (Neg-Trace)
[2023-10-06 14:00] LABS: Bacteria Urine None Seen (None Seen); Hyaline Casts Urine 0-2 /LPF (0-2); RBC Urine 0-2 /HPF (0-2); Squamous Epithelial Cell Urine 0-2 /HPF (0-2); WBC Urine 0-5 /HPF (0-5)
[2023-10-06 14:30] LABS: Erythrocyte Sedimentation Rate 10 MM/HR (0-20)
[2023-10-06 14:38] LABS: Alanine Aminotransferase 16 U/L (0-31); Albumin Level 4.2 g/dL (3.5-5.0); Alkaline Phosphatase 68 U/L (39-117); Anion Gap 11 (12-20); Aspartate Amino Transferase 18 U/L (5-31); Bilirubin Total 0.2 mg/dL (0.0-1.0); Blood Urea Nitrogen 11 mg/dL (9-16); C Reactive Protein 0.32 mg/dL (< or = 0.50); Calcium 9.2 mg/dL (8.4-10.2); Carbon Dioxide 28 mmol/L (22-29); Chloride 106 mmol/L (96-108); Estimated Glomerular Filt Rate > 60; Glucose Random 133 mg/dL (60-115); Potassium 3.7 mmol/L (3.3-5.1); Sodium 141 mmol/L (135-145); Total Protein 7.4 g/dL (6.5-8.0)
[2023-10-06 14:41] LABS: Creatinine Urine 159.38 mg/dL; Protein/Creatinine Ratio, Ur 0.07 (<0.2); Total Protein Urine Random 11 mg/dL (<12)
[2023-10-07 13:59] LABS: Anti DNA DS Antibody 1 IU/mL
[2023-10-08 13:59] LABS: Complement C3 92 mg/dL (83-193)
== END 2023-10-06 12:29 | disposition home or self-care (01) ==
LOC: HO.LAB 12:28
PROVIDERS: Visit Provider Student in an Organized Health Care Education/Training Program
DX: M32.9 Systemic lupus erythematosus, unspecified (principal); Z79.899 Other long term (current) drug therapy
CPT/HCPCS: 36415; 80053; 81001; 82570; 84156; 85025; 85652; 86140; 86160; 86225

== ENCOUNTER 2023-11-20 14:14 | Outpatient (AMB) | payer MEDICAID, SELFPAY ==
--- NOTE | 2023-11-20 14:20 | A.OFFVIS_ITS ---
Vital Signs 11/20/23 14:21 Height 5 ft 2 in Weight 160 lb 14.999 oz BMI 29.4 BP 126/70 Blood Pressure Location Rt brachial Position Sitting Pulse 74 Pulse Source Pulse Oximeter Pulse Oximetry (%) 98 Oxygen Delivery Method Room Air Intake Visit Reasons: SLE/LM Intake Note: Patient last seen 07/07/23 presents today for follow up and test results. Pending knee XRs Reports sharp pain pelvis area Hplc Chemist Required: No Accompanied by: Mother Allergies ranitidine [From ZANTAC] Allergy (Severe, Verified 11/20/23 14:27) TINGLING, WEAKNESS topiramate [Topamax] Allergy (Unknown, Verified 11/20/23 14:27) UNKNOWN Medication List - Last Reconciled 11/20/23 by Nino Leblanc MD acetaminophen (Tylenol Extra Strength) 500 mg PO Q6H PRN carbamazepine ER 400 mg PO BID diclofenac sodium 1% 2 grams topical hydroxychloroquine 200 mg PO BID multivitamin 1 tab PO DAILY HPI Comments Details: 42-year-old female with mild SLE returns for follow-up. She states that she has been taking the hydroxychloroquine regularly since last visit in June. She states that the skin rashes are significantly improved. She states that the generalized body pains are much improved but she continues to have some pain and stiffness of her neck, some pain in the stiffness of her knees but she feels it is not related. She would Like physical therapy for her neck Initial history: This is a 42-year-old female who presents for evaluation of a positive YENNIFER in the setting of diffuse body pain. Patient states that she gets flares of generalized fatigue, joint pain, pain in her skin when anything touches her, these happen 3 to 4 times a month and can last from 2-4 days. She also states that she gets rashes on her face when exposed to the sun. She also gets rashes on her feet. She admits to mouth ulcers. Patient also has braces. She denies Raynaud's. She denies any history of DVT/PE. Mentions that her niece has SLE. She has knee pain worse when getting up after sitting down. She takes Tylenol 1000 mg once or twice a day. Ibuprofen causes GI upset. [facility] Medical History Chronic GERD Chronic constipation Hx of seizure disorder IBS (irritable bowel syndrome) GERD (gastroesophageal reflux disease) Depression Tubular adenoma Surgical History H/O colonoscopy History of esophagogastroduodenoscopy (EGD) Family History Brother Tubular adenoma Sister Heart disease Mother Lung disease Fibromyalgia Father No problems noted. Social History Household Members: Children Alcohol intake: current Alcohol intake frequency: a few times a week Alcohol type: beer Cigarette Packs Per Day: 0 Cigarettes Per Day: 2 Years Smoked: 15 years Current occupational status: disabled Female Reproductive History Menstrual Total pregnancies: 2 Review of Systems ENT Reports neck pain Musc Reports arthralgias and Reports neck pain Psych Reports anxiety and Reports depression Physical Exam Vital Signs: Last Vital Signs Pulse 74 11/20/23 14:21 BP 126/70 11/20/23 14:21 Pulse Ox 98 11/20/23 14:21 Oxygen Delivery Method Room Air 11/20/23 14:21 BMI result Body Mass Index 29.4 Const General: cooperative, healthy appearing and comfortable Nutritional Appearance: overweight Orientation/consciousness: patient oriented x3 Limitations: no limitations HEENT Other: Has braces Head: Yes normocephalic and Yes atraumatic Mouth: moist mucous membranes Resp Effort & Inspection: normal respiratory effort and able to speak in complete sentences Auscultation: clear to auscultation bilaterally Skin Other: Rashes on face have resolved. Dry cracked skin on knuckles has resolved Neuro General: patient oriented x3 Extrem Other: No active synovitis today No fibromyalgia tender points Normal nailfold capillaroscopy Assessment & Plan Assessment & Plan (1) SLE (systemic lupus erythematosus): Comment: dx 06/2023 Skin rashes on face & knuckles, arthralgias, fatigue, +YENNIFER HCQ 06/2023 effective Code(s): M32.9 - Systemic lupus erythematosus, unspecified Category: Medical Qualifiers: Systemic lupus erythematosus organ involvement: unspecified Systemic lupus erythematosus type: other Qualified Code(s): M32.8 - Other forms of systemic lupus erythematosus Plan: This is a 42-year-old female with mild lupus/UCTD who presents for follow-up. She has been taking hydroxychloroquine regularly since last visit. With significantly improved rashes, generalized body pains, body aches. Continue hydroxychloroquine. But reduce dose to be at 5 milligram/kilogram 400 mg daily x5 days a week and 200 mg daily x2 days a week Advised patient to avoid sun exposure, use long sleeves, long hats, at apply sun screen Labs before next visit in 3 months (2) Long-term use of hydroxychloroquine: Code(s): Z79.899 - Other fdc (current) drug therapy Category: Medical Plan: Discussed risk of retinopathy associated with hydroxychloroquine. Patient stated that she saw her eye doctor recently and will be going back for additional testing. Will attempt to retrieve records (3) Degenerative cervical disc: Code(s): M50.30 - Other cervical disc degeneration, unspecified cervical region Category: Medical Plan: Some neck stiffness and pain, likely due to mild degenerative disc disease. Referred patient to PT Plan I spent 40 minutes reviewing patient's chart, evaluating patient, ordering diagnostic workup, counseling patient and documenting in the chart Orders: Orders Comprehensive Met. Panel 3 Months M32.9 - Systemic lupus erythematosus, unspecified Anti DNA DS Antibody 3 Months M32.9 - Systemic lupus erythematosus, unspecified UA w Microscopic 3 Months M32.9 - Systemic lupus erythematosus, unspecified PT Evaluation and Treatment Today M50.30 - Other cervical disc degeneration, u nspecified cervical region Complete Blood Count Auto Diff 3 Months M32.9 - Systemic lupus erythematosus, unspecified Complement C3 3 Months M32.9 - Systemic lupus erythematosus, unspecified Complement C4 3 Months M32.9 - Systemic lupus erythematosus, unspecified DNA Double Stranded-Crithidia 3 Months M32.9 - Systemic lupus erythematosus, unspecified Erythrocyte Sedimentation Rate 3 Months M32.9 - Systemic lupus erythematosus, unspecified Protein Creatinine Ratio, Ur 3 Months M32.9 - Systemic lupus erythematosus, unspecified Medications: Changed From hydroxychloroquine 200 mg PO BID 60 tabs 2RF To hydroxychloroquine Take 2 tabs daily x5 days a week, 1 tab daily x2 days a week 120 tabs 1RF Coding Level of Care Code Est Pt Level 5 (11953) Diagnoses Other forms of systemic lupus erythematosus, unspecified organ involvement status M32.8 Systemic lupus erythematosus organ involvement: unspecified Systemic lupus erythematosus type: other Long-term use of hydroxychloroquine Z79.899 Degenerative cervical disc M50.30
[2023-11-20 14:21] VITALS: BP 126/70; PULSE 74; O2SAT 98; BMI 29.4
== END 2023-11-20 14:53 | disposition home or self-care (01) ==
PROVIDERS: PCP Registered Nurse; Referring Provider Registered Nurse; Visit Provider Student in an Organized Health Care Education/Training Program
DX: M32.8 Other forms of systemic lupus erythematosus (principal); Z79.899 Other long term (current) drug therapy; M50.30 Other cervical disc degeneration, unspecified cervical region
CPT/HCPCS: 99215

== ENCOUNTER → 2023-11-20 14:14 | Outpatient (BNVA) | payer MEDICAID, SELFPAY | PROVIDERS: PCP Registered Nurse; Visit Provider Student in an Organized Health Care Education/Training Program | DX: M32.8 Other forms of systemic lupus erythematosus (principal); M50.30 Other cervical disc degeneration, unspecified cervical region; Z79.899 Other long term (current) drug therapy | CPT/HCPCS: 99212 ==

== ENCOUNTER 2024-01-09 14:02 | Emergency (ER) | payer MEDICAID, SELFPAY ==
--- NOTE | ~2024-01-09 | CT_ITS ---
EXAMINATION: CT abdomen pelvis w IV con CLINICAL INFORMATION: Reason for Exam lower abdominal pain R>L COMPARISON: No prior CT available for comparison. TECHNIQUE: Multidetector volumetric imaging was performed from the superior aspect of the liver through the pubic symphysis 85 mL Omnipaque 350 injected Sagittal and coronal reformatted images were obtained on the technologist's workstation. This CT examination was performed using dose optimization techniques as appropriate, variously including the following: *Automated exposure control *Adjustment of mA and/or kV according to patient size (this includes techniques or standardized protocols for targeted exams where dose is matched to indication/reason for exam; i.e. extremities or head) *Use of iterative reconstruction technique DLP: 428 mGy-cm FINDINGS: LOWER THORAX: Included lung bases are clear. HEPATOBILIARY: No focal hepatic lesions. No biliary ductal dilatation. GALLBLADDER: There are gallstones within the gallbladder. No CT evidence of cholecystitis. SPLEEN: Spleen is normal in size. PANCREAS: No focal mass or ductal dilatation. STOMACH AND GASTROINTESTINAL TRACT: Stomach is grossly unremarkable. There is no bowel distention or thickening. No CT evidence of appendicitis. ADRENALS: No adrenal nodules. KIDNEYS/URETERS: No hydronephrosis, stones or solid mass lesions. URINARY BLADDER: Partially decompressed. PELVIC VISCERA: There is IUD in the uterus. Otherwise Unremarkable PERITONEUM: No free air or fluid. LYMPH NODES: No lymphadenopathy. VASCULAR:Abdominal aorta normal in size, no aneurysm found. BONES, ABDOMINAL WALL AND SOFT TISSUES: Age-appropriate changes of the spine and skeletal system, no destructive osteolytic or osteosclerotic bone lesion found CT/CT abdomen pelvis w IV con IMPRESSION: No CT explanation for patient's pain symptoms. No evidence of appendicitis. No kidney stone or hydronephrosis. IUD in place.
--- NOTE | 2024-01-09 14:09 | ED_ITS ---
HPI - General Adult General Chief complaint: Abdominal Pain Stated complaint: abd pain Time Seen by Provider: 01/09/24 14:44 Source: patient Mode of arrival: ambulatory Limitations: no limitations History of Present Illness HPI narrative: This is a 43-year-old woman with mild SLE, GERD, constipation, seizure disorder, IBS, depression, tubular adenoma who presents for evaluation of lower abdominal pain with nausea. She states having lower abdominal pain for the last 2 days. She states associated with nausea, but states no emesis. She states decreased appetite. She states no fevers or chills. She states no dysuria, urinary frequency/urgency or flank pain. She states no back pain. She states no trauma. She states no chest pain or dyspnea. She states she has IBS and has experienced constipation and diarrhea at times, but states this is better now. She states no melena or hematochezia. She states no prior abdominal surgical history. She states taking Tylenol yesterday with some relief. She states Tylenol is better than ibuprofen as ibuprofen often upsets her stomach. Related Data Home Medications ?Medication ?Instructions ?Recorded ?Confirmed acetaminophen 500 mg tablet 500 mg PO Q6H PRN Pain 04/22/20 07/07/23 (Tylenol Extra Strength) carbamazepine 400 mg 400 mg PO BID 04/22/20 07/07/23 tablet,extended release,12 hr diclofenac sodium 1 % topical gel 2 g topical pain 03/06/23 07/07/23 multivitamin 1 tab PO DAILY 07/07/23 07/07/23 Previous Rx's ?Medication ?Instructions ?Recorded hydroxychloroquine 200 mg tablet See Rx Instructions PO .COMPLEX 11/20/23 #120 tabs Allergies Allergy/AdvReac Type Severity Reaction Status Date / Time ranitidine [From ZANTAC] Allergy Severe TINGLING, Verified 01/09/24 14:11 WEAKNESS topiramate [Topamax] Allergy Unknown UNKNOWN Verified 01/09/24 14:11 Review of Systems 2 Review of Systems: ROS as per HPI [facility] Past Medical History Medical History Chronic GERD Chronic constipation Hx of seizure disorder IBS (irritable bowel syndrome) GERD (gastroesophageal reflux disease) Depression Tubular adenoma Surgical History H/O colonoscopy History of esophagogastroduodenoscopy (EGD) Family History Family History Brother Tubular adenoma Sister Heart disease Mother Lung disease Fibromyalgia Father No problems noted. Social History Social History Household Members: Children Alcohol intake: current Alcohol intake frequency: a few times a week Alcohol type: beer Cigarette Packs Per Day: 0 Cigarettes Per Day: 2 Years Smoked: 15 years Advance Directives: No Advance Directives Information Provided: Yes Do you have a plan to hurt others: No Plan Current occupational status: disabled Physical Exam ED Vital Signs: Vital Signs - 24 hr 01/09/24 14:11 01/09/24 16:43 Temperature 97.3 F 97.6 F Pulse Rate 70 65 Respiratory Rate 18 18 Blood Pressure 132/86 131/85 Pulse Oximetry 97 99 Oxygen Delivery Method Room Air Room Air BMI result Body Mass Index 28.4 Gen: NAD, AOx3 HEENT: NCAT, EOMI, normal conjunctiva CV: RRR Pulm: CTAB, no increased work of breathing GI: Soft, mild lower abdominal tenderness to palpation, ND, no rebound, guarding or rigidity Neuro: Grossly non focal Course Course Course Narrative: RME performed by Rashida Duque PA-C. Patient is a 43 year old assigned female at presenting to the emergency department with abdominal pain. Patient states that over the last 2 days she has had abdominal pain that is primarily in her lower abdomen. Detailed physical exam and review of systems are deferred to the register of deeds. Labs and swabs ordered. Patient placed back in the waiting room pending room availability and results. Medications Administered Discontinued Medications Generic Name Dose Route Start Last Admin Trade Name Freq PRN Reason Stop Dose Admin Acetaminophen 975 mg 01/09/24 15:20 01/09/24 15:55 Acetaminophen 325 Mg Tablet PO 01/09/24 15:21 975 mg ONCE ONE Administration Lactated Ringer's 1,000 mls @ 999 mls/hr 01/09/24 15:16 01/09/24 17:28 Lr IV 01/09/24 16:16 Infused .Q1H1M ONE Infusion Iohexol 100 ml 01/09/24 16:40 01/09/24 16:40 Iohexol 350 Mg/Ml 100 Ml Infus..Btl IV 01/09/24 16:41 85 ml ONCE ONE Administration Medical Decision Making Medical Decision Making [facility] Narrative: Differential diagnosis includes, but is not limited to irritable bowel syndrome, gastroenteritis, appendicitis, viral syndrome. Patient is afebrile and hemodynamically stable on room air. Exam is benign and reassuring mild bilateral lower abdominal tenderness to palpation without guarding or rigidity. She is provided Tylenol for 975 mg p.o. analgesia. I reviewed and interpreted labs including CBC, CMP and lipase , which are noncontributory. Patient's test is negative. Urinalysis is unremarkable. Given lack of dysuria, urinary frequency/urgency, flank pain or fever I do not suspect urinary tract infection. Patient is negative for COVID-19, influenza and RSV. Diagnostic imaging studies are unremarkable for any acute findings. On re-examination, patient is well-appearing and in no acute distress. ?Considered ovarian torsion, but mild bilateral lower abdominal tenderness to palpation would be atypical and patient states symptoms have resolved. Thus, it was thought to be much less likely. There is no indication for further emergent evaluation in this otherwise well-appearing patient as above. ?Patient is provided written and verbal instructions, educational materials, recommendations for outpatient follow-up, strict return precautions and teach back is performed. ?Patient states understanding and agreement with plan of care. ?Patient is discharged home in stable and improved condition. Admission/Observation Consideration of admission/observation: Escalation of care including admission/observation considered Lab Data [facility] Lab Attestation statement: I reviewed the patient's lab results. 01/09/24 14:33 01/09/24 14:33 Labs: Lab Results 01/09/24 Range/Units 14:33 WBC 7.0 (4.8-10.8) X10*3/uL RBC 4.09 L (4.20-5.50) X10*6/uL Hgb 12.6 (12.0-16.0) g/dl Hct 36.3 L (37.0-47.0) % MCV 88.8 (80.0-98.0) fL MCH 30.8 (27.0-33.0) pg MCHC 34.7 (31.0-35.0) g/dl RDW 13.9 (11.0-16.0) % Plt Count 246 (160-400) X10*3/uL MPV 8.8 L (9.4-12.3) fL Immature Gran % (Auto) 0.3 (0.0-0.4) % Neut % (Auto) 51.1 (45-73) % Lymph % (Auto) 37.8 (20-40) % Zavala % (Auto) 8.9 (2-11) % Eos % (Auto) 1.3 (0-4) % Baso % (Auto) 0.6 (0-2) % Lymph # (Auto) 2.6 (1.2-4.9) X10*3/uL Zavala # (Auto) 0.6 (0.1-1.2) X10*3/uL Eos # (Auto) 0.1 (0.0-0.4) X10*3/uL Baso # (Auto) 0.0 (0.0-0.2) X10*3/uL Abs Immat Gran (auto) 0.02 (0.00-0.03) X10*3/uL Absolute Neuts (auto) 3.6 (2.0-8.3) x10*3/uL Absolute Nucleated RBC 0.000 (0.0-0.012) X10*3/uL Nucleated RBC % (auto) 0.0 (0.0-0.2) /100WBC Sodium 137 (135-145) mmol/L Potassium 4.0 (3.3-5.1) mmol/L Chloride 103 (96-108) mmol/L Carbon Dioxide 25 (22-29) mmol/L Anion Gap 13 (12-20) BUN 4 L (9-16) mg/dL Creatinine 0.62 (0.5-1.4) mg/dL Estim Creat Clear Calc 107.5 Estimated GFR > 60 Random Glucose 81 (60-115) mg/dL Calcium 9.5 (8.4-10.2) mg/dL Magnesium 2.1 (1.6-2.6) mg/dL Total Bilirubin 0.2 (0.0-1.0) mg/dL AST 27 (5-31) U/L ALT 23 (0-31) U/L Alkaline Phosphatase 72 (39-117) U/L Total Protein 7.6 (6.5-8.0) g/dL Albumin 4.3 (3.5-5.0) g/dL Lipase 18 (8-78) U/L Urine Color Yellow Urine Appearance Clear Urine pH 5.5 (5.0-9.0) Ur Specific Pioneer 1.010 (1.005-1.025) Urine Protein Negative (Neg-Trace) mg/dL Urine Glucose (UA) Negative (Negative) mg/dL Urine Ketones Negative (Negative) mg/dL Urine Blood Negative (Negative) Urine Nitrite Negative (Negative) Ur Leukocyte Esterase Negative (Negative) Urine Test NEGATIVE (NEGATIVE) Influenza Type A (PCR) NEGATIVE (Negative) Influenza Type B (PCR) NEGATIVE (Negative) RSV RNA Qual (PCR) NEGATIVE (Negative) SARS-CoV-2 RNA (RT-PCR) NEGATIVE (Negative) Radiology Impression Discussion of test interpretation with radiology: I have reviewed the radiologist's reading. Radiologist Impression: IMPRESSION: No CT explanation for patient's pain symptoms. No evidence of appendicitis. No kidney stone or hydronephrosis. IUD in place. Dictated By: Kaur Do MD Signed By: <Electronically signed by Kaur Do MD in OV> 01/09/24 4945 Discharge Plan Discharge Clinical Impression: Abdominal pain Patient Disposition: Home, Self-Care Instructions: Abdominal Pain (ED) Additional Instructions: You were seen and evaluated in the emergency room. Your vital signs were normal. Your blood work, urine studies a take or normal and reassuring. The CT scan of the abdomen/pelvis demonstrated no emergent abnormalities. Please follow-up with your primary care doctor in the next 5-7 days. ? Please return to the emergency room if you develop any worsening symptoms including, but not limited to fever, severe abdominal pain, persistent nausea/vomiting or inability to eat/drink. Prescriptions: No Action acetaminophen [Tylenol Extra Strength] 500 mg tablet 500 mg PO Q6H PRN (Reason: Pain) carbamazepine 400 mg tablet extended release 12 hr 400 mg PO BID diclofenac sodium 1 % gel 2 g topical multivitamin Tablet 1 tab PO DAILY hydroxychloroquine 200 mg tablet See Rx Instructions PO .COMPLEX Qty: 120 1RF Rx Instructions: Take 2 tabs daily x5 days a week, 1 tab daily x2 days a week Print Language: Romansh
[2024-01-09 14:11] VITALS: BP 132/86; PULSE 70; RESP 18; TEMP 36.3; O2SAT 97; BMI 28.4
[2024-01-09 14:37] LABS: MANUAL DIFF FLAG NO
[2024-01-09 14:41] LABS: Appearance Urine Clear; Color Urine Yellow; Glucose Urine UA Negative (Negative); Leukocyte Esterase Urine Negative (Negative); Nitrite Urine Negative (Negative); PH 5.5 (5.0-9.0); Urine Blood Negative (Negative); Urine Ketones Negative (Negative); Urine Protein Negative (Neg-Trace)
[2024-01-09 14:44] LABS: Basophils Percent Auto 0.6 % (0-2); Eosinophils Absolute Auto 0.1 X10*3/uL (0.0-0.4); Eosinophils Percent Auto 1.3 % (0-4); Hematocrit 36.3 % (37.0-47.0); Hemoglobin 12.6 g/dl (12.0-16.0); Imm Gran Abs Auto 0.02 X10*3/uL (0.00-0.03); Imm Gran Pct Auto 0.3 % (0.0-0.4); Lymphocytes Absolute Auto 2.6 X10*3/uL (1.2-4.9); Lymphocytes Percent Auto 37.8 % (20-40); Mean Corpuscular HGB Conc 34.7 g/dl (31.0-35.0); Mean Corpuscular Hemoglobin 30.8 pg (27.0-33.0); Mean Corpuscular Volume 88.8 fL (80.0-98.0); Mean Platelet Volume 8.8 fL (9.4-12.3); Monocytes Absolute Auto 0.6 X10*3/uL (0.1-1.2); Monocytes Percent Auto 8.9 % (2-11); Neutrophils Absolute Auto 3.6 x10*3/uL (2.0-8.3); Neutrophils Percent Auto 51.1 % (45-73); Platelet Count 246 X10*3/uL (160-400); Red Blood Count 4.09 X10*6/uL (4.20-5.50); Red Cell Distribution Width 13.9 % (11.0-16.0)
[2024-01-09 15:00] LABS: UPreg QC Valid YES; Urine Pregnancy NEGATIVE (NEGATIVE)
[2024-01-09 15:03] LABS: Alanine Aminotransferase 23 U/L (0-31); Albumin Level 4.3 g/dL (3.5-5.0); Alkaline Phosphatase 72 U/L (39-117); Anion Gap 13 (12-20); Aspartate Amino Transferase 27 U/L (5-31); Bilirubin Total 0.2 mg/dL (0.0-1.0); Blood Urea Nitrogen 4 mg/dL (9-16); Calcium 9.5 mg/dL (8.4-10.2); Carbon Dioxide 25 mmol/L (22-29); Chloride 103 mmol/L (96-108); Creatinine Clr Calc Pharmacy 107.5; Estimated Glomerular Filt Rate > 60; Glucose Random 81 mg/dL (60-115); Magnesium 2.1 mg/dL (1.6-2.6); Sodium 137 mmol/L (135-145); Total Protein 7.6 g/dL (6.5-8.0)
[2024-01-09 15:19] LABS: Influenza A PCR NEGATIVE (Negative); Influenza B PCR NEGATIVE (Negative); Resp Syncy Virus RNA Qual PCR NEGATIVE (Negative); SARS COV2 PCR INHOUSE NEGATIVE (Negative)
[2024-01-09 15:24] LABS: Lipase 18 U/L (8-78)
[2024-01-09] MEDS: Acetaminophen 325 MG TABLET 975 MG PO (15:55)
[2024-01-09] MEDS: Lactated Ringers 1,000 ML 999 ML IV (15:55)
[2024-01-09] MEDS: iohexoL 350 MG/ML 100 ML INFUS..BTL IV (16:40)
[2024-01-09 16:43] VITALS: BP 131/85; PULSE 65; RESP 18; TEMP 36.4; O2SAT 99
[2024-01-09 18:00] VITALS: BP 138/90; PULSE 59; RESP 18; TEMP 36.9; O2SAT 98
== END 2024-01-09 18:33 | disposition home or self-care (01) ==
PROVIDERS: Physician Assistant Medical; Emergency Provider Emergency Medicine; PCP Registered Nurse
DX: R10.30 Lower abdominal pain, unspecified (principal); R11.0 Nausea; Z79.899 Other long term (current) drug therapy; Z03.818 Encounter for observation for suspected exposure to other biological agents ruled out
CPT/HCPCS: 0241U; 74177; 80053; 81003; 81025; 83690; 83735; 85025; 96360; 96361; 99284; J7120; Q9967

== ENCOUNTER 2024-07-15 12:43 | Outpatient (REF) | payer MEDICAID, SELFPAY ==
--- NOTE | ~2024-07-15 | XR_ITS ---
EXAMINATION: BILATERAL ANKLES CLINICAL INFORMATION: Bilateral ankle pain with lupus COMPARISON: None available. TECHNIQUE: 3 views each ankle FINDINGS: No bone, joint or soft tissue abnormality is seen. XR/XR ankle RT min 3V IMPRESSION: Negative exams. Electronically signed by: Kris Park MD 07/15/2024 02:32 PM EST
--- NOTE | ~2024-07-15 | XR_ITS ---
EXAMINATION: BILATERAL ANKLES CLINICAL INFORMATION: Bilateral ankle pain with lupus COMPARISON: None available. TECHNIQUE: 3 views each ankle FINDINGS: No bone, joint or soft tissue abnormality is seen. XR/XR ankle LT min 3V IMPRESSION: Negative exams. Electronically signed by: Kris Park MD 07/15/2024 02:32 PM EST
[2024-07-15 16:04] LABS: Appearance Urine Clear; Color Urine Yellow; Glucose Urine UA Negative (Negative); Leukocyte Esterase Urine Negative (Negative); Nitrite Urine Negative (Negative); Urine Blood Negative (Negative); Urine Ketones Negative (Negative); Urine Protein Negative (Neg-Trace)
[2024-07-15 16:07] LABS: Bacteria Urine None Seen (None Seen); Hyaline Casts Urine 0-2 /LPF (0-2); MANUAL DIFF FLAG NO; RBC Urine 0-2 /HPF (0-2); Squamous Epithelial Cell Urine 0-2 /HPF (0-2); WBC Urine 0-5 /HPF (0-5)
[2024-07-15 16:13] LABS: Basophils Percent Auto 0.6 % (0-2); Eosinophils Percent Auto 0.3 % (0-4); Hematocrit 37.3 % (37.0-47.0); Hemoglobin 12.9 g/dl (12.0-16.0); Imm Gran Abs Auto 0.02 X10*3/uL (0.00-0.03); Imm Gran Pct Auto 0.3 % (0.0-0.4); Lymphocytes Absolute Auto 1.9 X10*3/uL (1.2-4.9); Lymphocytes Percent Auto 28.8 % (20-40); Mean Corpuscular HGB Conc 34.6 g/dl (31.0-35.0); Mean Corpuscular Volume 89.7 fL (80.0-98.0); Mean Platelet Volume 9.3 fL (9.4-12.3); Monocytes Absolute Auto 0.5 X10*3/uL (0.1-1.2); Monocytes Percent Auto 8.1 % (2-11); Neutrophils Percent Auto 61.9 % (45-73); Platelet Count 266 X10*3/uL (160-400); Red Blood Count 4.16 X10*6/uL (4.20-5.50); Red Cell Distribution Width 13.7 % (11.0-16.0); White Blood Count 6.5 X10*3/uL (4.8-10.8)
[2024-07-15 16:41] LABS: Creatinine Urine 28.53 mg/dL; Total Protein Urine Random < 7 mg/dL (<12)
[2024-07-15 17:27] LABS: Erythrocyte Sedimentation Rate 10 MM/HR (0-20)
[2024-07-15 18:54] LABS: CT PCR NOT DETECTED (Not Detect.); NG PCR NOT DETECTED (Not Detect.)
[2024-07-15 18:58] LABS: Alanine Aminotransferase 10 U/L (0-31); Albumin Level 4.3 g/dL (3.5-5.0); Alkaline Phosphatase 78 U/L (39-117); Anion Gap 11 (12-20); Aspartate Amino Transferase 21 U/L (5-31); Bilirubin Total 0.2 mg/dL (0.0-1.0); Blood Urea Nitrogen 11 mg/dL (9-16); Calcium 8.7 mg/dL (8.4-10.2); Carbon Dioxide 24 mmol/L (22-29); Chloride 106 mmol/L (96-108); Cholesterol 232 mg/dL (<200); Estimated Glomerular Filt Rate > 60; Glucose Random 88 mg/dL (60-115); HDL Cholesterol 112 mg/dL (>40); LDL Cholesterol Calculated 111 mg/dL (<100); Potassium 4.3 mmol/L (3.3-5.1); Sodium 137 mmol/L (135-145); Total Protein 7.5 g/dL (6.5-8.0); Triglycerides 48 mg/dL (<150)
[2024-07-15 19:13] LABS: TSH reflex Free T4 0.39 uIU/mL (0.32-4.0); Vitamin D 25-OH Total 61.4 ng/mL (>30)
[2024-07-15 19:39] LABS: Reflex LDLD? No
[2024-07-16 07:53] LABS: Estimated Average Glucose 94 mg/dL; Hemoglobin A1C 102.9256 umol/L; Hemoglobin A1c % 4.9 % (<6.0); Total Hemoglobin (HGBA1C) 3464.6945 umol/L
[2024-07-16 08:15] LABS: Hepatitis A Antibody IgG Nonreactive (Nonreactive); ~Hepatitis A Antibody IgG 0.32 S/CO (0.00-0.99)
[2024-07-16 08:18] LABS: Syphilis Screen Reactive (Nonreactive)
[2024-07-16 08:19] LABS: HBS Num1 30.74 mIU/mL (0-7.99); HBc Num1 0.34 S/CO (0.00-0.79); HBsAGNum1 0.38 S/CO (0.00-0.99); HIV AB/AG Nonreactive (Nonreactive); HIV Num 1 0.08 S/CO (0.00-0.99); Hepatitis B Core Antibody Nonreactive (Nonreactive); Hepatitis B Surface Antigen Negative (Negative); ~HepC Num1 0.11 S/CO (0.00-0.79); ~Hepatitis B Surface Antibody REACTIVE (Nonreactive); ~Hepatitis C Antibody Nonreactive (Nonreactive)
[2024-07-16 11:18] LABS: Complement C3 97 mg/dL (83-193)
[2024-07-16 13:59] LABS: Anti DNA DS Antibody <1 IU/mL
[2024-07-17 23:38] LABS: TS Negative Control Passed; TS Panel A 0; TS Panel B 0; TS Positive Control Passed; TSpotTB Negative (Negative)
[2024-07-21 15:04] LABS: DNAds, Crithidia Antibody Negative (Negative)
[2024-07-26 09:37] LABS: RPR Quantitative Non-Reactive (Nonreactive); T.Pallidum Particle Agg Test Non-Reactive (Nonreactive)
== END 2024-07-15 12:44 | disposition home or self-care (01) ==
LOC: HO.HHCL 12:43
PROVIDERS: Student in an Organized Health Care Education/Training Program; Visit Provider Family Medicine
DX: M25.571 Pain in right ankle and joints of right foot (principal); M25.572 Pain in left ankle and joints of left foot; G89.29 Other chronic pain; M32.9 Systemic lupus erythematosus, unspecified; Z11.3 Encounter for screening for infections with a predominantly sexual mode of transmission; R03.0 Elevated blood-pressure reading, without diagnosis of hypertension; Z13.1 Encounter for screening for diabetes mellitus; Z01.84 Encounter for antibody response examination; Z13.220 Encounter for screening for lipoid disorders; Z11.7 Encounter for testing for latent tuberculosis infection
CPT/HCPCS: 36415; 73610; 80053; 80061; 81001; 82306; 82570; 83036; 84156; 84443; 85025; 85652; 86160; 86225; 86255; 86481; 86592; 86704; 86706; 86708; 86780; 86803; 87340; 87389; 87491; 87591

== ENCOUNTER 2024-07-15 13:31 | Outpatient (REF) | payer MEDICAID, SELFPAY | END 2024-07-15 13:32 | disposition home or self-care (01) | LOC: HO.HHCL 13:31 | PROVIDERS: Visit Provider Student in an Organized Health Care Education/Training Program | DX: Z13.89 Encounter for screening for other disorder (principal) ==

== ENCOUNTER 2024-08-03 16:38 | Outpatient (REF) | payer MEDICAID, SELFPAY ==
[2024-08-04 06:50] LABS: HPV 16,18/45 See PAP report
== END 2024-08-03 16:39 | disposition home or self-care (01) ==
LOC: HO.HHCLNP 16:38
PROVIDERS: Visit Provider Advanced Practice Midwife
DX: Z12.4 Encounter for screening for malignant neoplasm of cervix (principal); Z11.51 Encounter for screening for human papillomavirus (HPV); Z97.5 Presence of (intrauterine) contraceptive device
CPT/HCPCS: 87626; 88175

== ENCOUNTER 2024-08-17 05:55 | Outpatient (REF) | payer MEDICAID, SELFPAY | END 2024-08-17 05:56 | disposition home or self-care (01) | LOC: HO.NEURO 05:55 | PROVIDERS: PCP Family Medicine; Visit Provider Family Medicine | DX: Z13.89 Encounter for screening for other disorder (principal) ==

== ENCOUNTER 2025-04-13 12:44 | Outpatient (REF) | payer MEDICAID, SELFPAY ==
--- OUTSIDE RECORDS SUMMARY | 2025-04-13 15:14 | XMS_ITS | Encounter Summary ---
Author Organization [employer] Address [address] [facility] 7t [place] [address] Care Team Providers Care Chocolate Refining Roller Name Role Phone Barbara Blue MD Primary Care Provider [phone] Reason for Referral * Consultation (Routine) - Closed Specialty Diagnoses / Procedures Referred By Contac t Referred To Contact Neurology Diagnoses Seizure disorder (CMS/HCC) Barbara Blue MD [address] [place] [address] Phone: tel: fax: [facility]rology [address] [place] [address] Phone: tel: fax: Referral ID Status Reason Start Date Expiration Date V isits Requested Visits Authorized [id number] Closed Specialty Services Required 07/29/2024 07/29/2025 6 6 Encounter Details Date Type Department Care Team (Late st Contact Info) Description 07/28/2024 Orders Only [facility] [address] [place] [address] [phone] Barbara Blue MD [address] [place], [place] [phone] Seizure disorder (CMS/HCC) (Primary Dx) Social History Tobacco Use Types Packs/Day Years Used Date Smoking Tobacco: Every Day Cigarettes Depression Answer Date Recorded Patient Health Questionnaire-9 Score 10 07/15/2024 Patient Health Questionnaire-9 Score 10 07/15/2024 Last PHQ-9: Questionnaire Data Not on file 1 09/15/2023 Housing Stability Answer Date Recorded What is your housing situation today? I have shital baltazar 08/01/[address] you li ve. Do you have problems with any of the following? Pests such as bugs, ants, or mice 08/01/2023 Food Insecurity Answer Date Recorded Within the past 12 months, y ou worried that your food would run out before you got money to buy more: Sometimes True 2023 Within the past 12 months,th e food you bought just didn't last and you didn't have enough money to get more: Sometimes True 08/01/2023 Transportation Answer Date Recorded In the past 12 months, has l ack of transportation kept you from medical appts, meetings, work or from getting things needed for daily living? Yes, it has kept me from medical appointments or getting medications. 08/01/2023 Utilities Answer Date Recorded In the past 12 months, has t he electric, gas, oil or water company threatened to shut off services in your home? No 05/15/2023 Depression Answer Date Recorded Patient Health Questionnaire-2 Score 2 07/15/2024 Internet Access Answer Date Recorded Internet Access Q1 No 03/22/2024 Internet Access Q2 I do not want or need it 08/2023 Comments Unknown Sex and Gender Information Value Date Recorded Sex Assigned at Female 05/20/2022 10:15 AM EDT Legal Sex Female 10:15 AM EDT Gender Identity Female 05/20/2022 10:15 AM EDT Sexual Orientation Choose not to disclose 2021 10:15 AM EDT documented as of this encounter Plan of Treatment Upcoming Encounters Date Type Department Care Team (Late st Contact Info) Description 05/16/2025 3:00 PM EDT Office Visit [facility] [address] [place], [place] [phone] Barbara Blue MD [address] [place] [address] 06/24/2025 2:30 PM EST Office Visit [facility] [address] [place] [address] Nelli Tenorio, OD [address] [place] [address] Pending Results Name Type Priority Associated Diagnoses Date /Time Referral to Neurology Outpatient Referral Routine Seizure disorder (CMS/[facility]) 09/07/2024 Scheduled Referrals Name Type Priority Associated Diagnoses Orde r Schedule Referral to Neurology Outpatient Referral Routine Seizure disorder (CMS/[facility]) Expected: 07/28/2024 (Approximate), Expires: 07/28/2025 documented as of this encounter Visit Diagnoses Diagnosis Seizure disorder (CMS/[facility])- Primary Unspecified epilepsy without mention of intractable epilepsy documented in this encounter Additional Health Concerns Assessment Noted Time PHQ-9 Depression Total Score: 10 024 12:52 PM EST documented as of this encounter Care Teams Chocolate Refining Roller Relationship Specialty Start Date End Date Barbara Blue MD [address] [place] [address] PCP - General Family Medicine 06/20/23 documented as of this encounter
--- OUTSIDE RECORDS SUMMARY | 2025-04-13 15:14 | XMS_ITS | Encounter Summary ---
Author Organization [employer] Address [address] [facility] 7t [place] [address] Care Team Providers Care Resource Program Teacher Name Role Phone Barbara Blue MD Primary Care Provider [phone] Encounter Details Date Type Department Care Team ([facility] st Contact Info) Description 07/23/2024 Orders Only [facility] [address] [place], [place] [phone] Barbara Blue MD [address] [place], [place] [phone] Positive serology for syphilis (Primary Dx) Social History Tobacco Use Types [...] Description 05/16/2025 3:00 PM EDT Office Visit [facility] [address] [place] [address] Barbara Blue MD [address] [place] [address] 06/24/2025 2:30 PM EST Office Visit [facility] [address] [place] [address] Jona, Nelli, OD [address] [place] [address] Scheduled Orders Name Type Priority Associated Diagnoses Orde r Schedule RPR (Monitor) with Reflex to Titer Lab Routine Positive serology for syphilis Expected: 07/23/2024 (Approximate), Expires: 07/23/2025 documented as of this encounter Visit Diagnoses Diagnosis Positive serology for syphilis- Primary documented in this encounter Additional Health Concerns Assessment Noted Time PHQ-9 Depression Total Score: 10 024 12:52 PM EST documented as of this encounter Care Teams Resource Program Teacher Relationship Specialty Start Date End Date Barbara Blue MD [address] [place] [id number] PCP - General Family Medicine 06/20/23 documented as of this encounter
--- OUTSIDE RECORDS SUMMARY | 2025-04-13 15:14 | XMS_ITS | Encounter Summary ---
Author Organization [employer] Address [address] [place] [address] [address] [place] [address] Care Team Providers Care Space Systems Operations Craftsman Name Role Phone Barbara Blue MD Primary Care Provider [phone] Reason for Visit * Reason Onset Date Comments Appointment Request 11/15/2024 Encounter Details Date Type Department Care Team ([facility] st Contact Info) Description 11/15/2024 Telephone [facility] [address] [place], [place] [phone] Barbara Blue MD [address] [place], [place] [phone] Appointment Request Social History Tobacco Use Types Packs/Day Years Used Date Smoking Tobacco: Former Cigarettes Alcohol Use Standard Drinks/Week Comments Not Currently 0 (1 standard drink = 0.6 oz pur e alcohol) Depression Answer Date Recorded Patient Health Questionnaire-9 Score 10 07/15/2024 Patient Health Questionnaire-9 Score 10 07/15/2024 Last PHQ-9: Questionnaire Data Not on file 1 09/15/2023 Housing Stability Answer Date Recorded What is your housing situation today? I have shital baltazar 11/17/[address] you li ve. Do you have problems with any of the following? None of the above 11/17/2024 Food Insecurity Answer Date Recorded Within the past 12 months, y ou worried that your food would run out before you got money to buy more: Never True 11/17/2024 Within the past 12 months,th e food you bought just didn't last and you didn't have enough money to get more: Never True Transportation Answer Date Recorded In the past 12 months, has l ack of transportation kept you from medical appts, meetings, work or from getting things needed for daily living? No 11/17/2024 Utilities Answer Date Recorded In the past 12 months, has t he electric, gas, oil or water company threatened to shut off services in your home? No 11/17/2024 Depression Answer Date Recorded Patient Health Questionnaire-2 Score 2 07/15/2024 Internet Access Answer Date Recorded Internet Access Q1 Yes 11/17/2024 Internet Access Q2 I do not want or need it 10/21 Comments Unknown Sex and Gender Information Value Date Recorded Sex Assigned at Female 05/20/2022 10:15 AM EDT Legal Sex Female 10:15 AM EDT Gender Identity Female 05/20/2022 10:15 AM EDT Sexual Orientation Choose not to disclose 2021 10:15 AM EDT documented as of this encounter Miscellaneous Notes * Telephone Encounter - Bárbara Nielson - 11/15/2024 8:29 AM EDT Tc from pt requesting r/s f/u rv bp and sle appointment with pcp. [phone] documented in this encounter Plan of Treatment Upcoming Encounters Date Type Department Care Team (Late st Contact Info) Description 05/16/2025 3:00 PM EDT Office Visit [facility] [address] [place] [address] Barbara Blue MD [address] [place] [address] 06/24/2025 2:30 PM EST Office Visit [facility] [address] [place] [address] Nelli Tenorio, OD [address] [place] [address] documented as of this encounter Visit Diagnoses Not on filedocumented in this encounter Additional Health Concerns Assessment Noted Time PHQ-9 Depression Total Score: 10 024 12:52 PM EST documented as of this encounter Care Teams Space Systems Operations Craftsman Relationship Specialty Start Date End Date Barbara Blue MD [address] [place] [address] PCP - General Family Medicine 06/20/23 documented as of this encounter
--- OUTSIDE RECORDS SUMMARY | 2025-04-13 15:14 | XMS_ITS | Clinical Summary ---
Author Organization [employer] Address [address] [facility] 7t [place] [address] Care Team Providers Care Information Technology Professor Name Role Phone Barbara Blue MD Primary Care Provider [phone] Allergies Active Allergy Reactions Criticality Noted Date Comments Topiramate 03/16/2025 Medications omeprazole (PriLOSEC) [address] capsule Take 1 capsule by mouth at bed time. Active Diclofenac Sodium 1 % gel Apply 2 g topically if needed in the morning and at bedtime (pain). 150 g 3 10/23/19 23 Active Acetaminophen Extra Strength 500 MG tablet TAKE 1 TABLET BY MOUTH EVERY 6 HOURS NEEDED FOR MILD PAIN 60 tablet 1 01/29/20 23 Active hydroxychloroq uine (Plaquenil) 200 MG tablet Take 200 mg by mouth 2 times daily. Active Blood Pressure Monitor [facility] [place] BP daily 1 each 07/15/20 24 Active carBAMazepine XR (TEGretol-XR) 400 MG 12 hr tabletIndicati ons:Seizure (CMS/HCC) TAKE 1 TABLET BY MOUTH EVERY MORNING AND 2 TABLETS AT BEDTIME 90 tablet 5 10/13/19 25 Active cetirizine (ZyrTEC) 10 MG tablet Take 1 tablet (10 mg) by mouth Once per day. 90 tablet 3 11/18/19 25 026 Active fluticasone (Flonase) 50 MCG/ACT nasal spray Administer 1-2 sprays into each nostril Once per day. Shake gently. Before first use, prime pump. After use, clean tip and replace cap. 16 g 2 11/18/19 25 026 Active carBAMazepine XR (TEGretol-XR) 400 MG 12 hr tablet Take 1 tablet (400 mg) by mouth 2 times daily. Do not crush, chew, or split. 60 tablet 11 02/12/20 25 026 Active triamcinolone (Kenalog) 0.1 % creamIndicatio ns:Rash Apply twice daily to affected areas for 2-4 weeks 45 g 03/22/20 25 Active TEGretol-XR 200 MG 12 hr tablet TAKE 2 TABLETS BY MOUTH IN THE MORNING AND 4 TABLETS IN THE EVENING. 180 tablet 1 04/11/20 25 Active ibuprofen 800 MG tablet TAKE 1 TABLET BY MOUTH EVERY 8 HOURS IF NEEDED FOR MILD PAIN OR MODERATE PAIN. 90 tablet 1 04/11/20 25 Active ibuprofen 800 MG tablet TAKE 1 TABLET BY MOUTH EVERY 8 HOURS IF NEEDED FOR MILD PAIN OR MODERATE PAIN. 90 tablet 1 01/11/20 25 025 Discontinued(Re order (will not trigger notification to Pharmacy)) TEGretol-XR 200 MG 12 hr tablet Take 2 tablets by mouth in the morning and 4 tablets in the evening. 180 tablet 1 02/09/20 25 025 Discontinued Active Problems Problem Noted Date Diagnosed Date Allergic rhinitis 11/21/2024 Assessment & Plan (02/13/2025 5:10 PM EDT): - continue fluticasone and cetirizine - no eosinophilia. Will hold montelukast - refer to ENT Assessment & Plan (11/21/2024 9:27 PM EDT): - start fluticasone and cetirizine - consider ENT referral Chronic pain of both knees 07/15/2024 Assessment & Plan (07/23/2024 3:30 PM EST): - Evaluate with X-ray - Continue judicious use of NSAID Pain in both hands 07/15/2024 Assessment & Plan (07/15/2024 2:35 PM EST): - She reports pain, dryness, and occasional swelling of the hands. - In the past she used a brace to alleviate her carpal tunnel symptoms. Chronic pain of both ankles 07/15/2024 Assessment & Plan (07/23/2024 3:30 PM EST): - Evaluate with X-ray - Continue judicious use of NSAID Elevated BP without diagnosis of hypertension Assessment & Plan (02/13/2025 5:11 PM EDT): -Goal BP < 130/80 per ACC/AHA guideline (Treatment threshold >=140/90) -BP better today -Continue working on lifestyle modifications -Recommended self-monitoring BP. Assessment & Plan (11/17/2024 9:02 AM EDT): -Goal BP < 140/90 per JNC-8 and < 130/80 per ACC/AHA guideline (Treatment threshold >=140/90) - Elevated BP could be due to cigarettes the pt smoked before her appointment. -Continue working on lifestyle modifications -Recommended self-monitoring BP. -Follow up in 3-6 mo, sooner if any problem arises- Assessment & Plan (07/23/2024 3:25 PM EST): -Goal BP < 140/90 per JNC-8 and < 130/80 per ACC/AHA guideline (Treatment threshold >=140/90) - Elevated BP could be due to cigarettes the pt smoked before her appointment. -Continue working on lifestyle modifications -Recommended self-monitoring BP. -Follow up in 3-6 mo, sooner if any problem arises- Vitamin D deficiency 07/15/2024 Assessment & Plan (07/23/2024 3:30 PM EST): - Continue Vitamin D supplement. SLE (systemic lupus erythematosus) 07/14/2024 Assessment & Plan (02/08/2025 8:45 AM EDT): - currently following with [facility] Rheumatology, Dr. Leblanc, last seen in November 2023 - current medication: hydroxychloroquine - continue treatment plan per Dr. Leblanc. Patient is considering about second opinion Assessment & Plan (11/17/2024 9:02 AM EDT): - currently following with [facility] Rheumatology, Dr. Leblanc, last seen in November 2023 - current medication: hydroxychloroquine - continue treatment plan per Dr. Leblanc. Patient is considering about second opinion Assessment & Plan (07/23/2024 3:33 PM EST): - currently following with [facility] Rheumatology, Dr. Leblanc, last seen in November 2023 - current medication: hydroxychloroquine - continue treatment plan per Dr. Leblanc. Patient is considering about second opinion Multiple joint pain 03/18/2022 Assessment & Plan (07/23/2024 3:29 PM EST): - multifactorial - continue judicious use of ibuprofen - optimize treatment for SLE - continue staying physically active Mass of right breast 03/26/2021 Assessment & Plan (02/13/2025 5:12 PM EDT): - last mammography 08/14/21 BI-RADS 3 - Dx mammog has been ordered - recommended to reschedule appointment. Assessment & Plan (07/23/2024 3:34 PM EST): - last mammography 08/14/21 BI-RADS 3 - evaluate with Dx [facility] Tobacco dependence 12/09/2012 Assessment & Plan (02/08/2025 8:45 AM EDT): - continue making smoking cessation effort - continue discussing about benefit of smoking cessation Assessment & Plan (11/17/2024 9:02 AM EDT): - continue making smoking cessation effort - continue discussing about benefit of smoking cessation Assessment & Plan (07/23/2024 3:31 PM EST): - continue making smoking cessation effort - continue discussing about benefit of smoking cessation Depression 12/05/2011 Assessment & Plan (07/23/2024 3:36 PM EST): - PHQ9 score 10 and GAD7 score 2 on 07/15/24 - behavioral health service provider: [facility] - continue current therapy - continue rowing and being engaged with [facility] Seizure disorder 12/05/2011 Assessment & Plan (02/08/2025 8:45 AM EDT): - following with neurologist, Dr. Iraheta - currently taking carbamazepine - last seizure > 6 mo ago - continue current treatment plan per Dr. Iraheta Assessment & Plan (11/17/2024 9:01 AM EDT): - following with neurologistDr. Iraheta - currently taking carbamazepine - last seizure > 6 mo ago - continue current treatment plan per Dr. Iraheta Assessment & Plan (07/23/2024 3:23 PM EST): - following with neurologistDr. Iraheta - currently taking carbamazepine - last seizure > 6 mo ago - continue current treatment plan per Dr. Iraheta Encounters Date Type Department Care Team Description 04/11/2025 Refill [facility] [place] [address] Barbara Blue MD 04/11/2025 Refill [facility] [place] [address] Angeles Yi ANP 03/22/2025 11:15 AM EDT Office Visit [facility] [place] [address] Angeles Yi ANP Rash (Primary Dx) 03/22/2025 Travel 03/21/2025 Travel 03/16/2025 Telephone [facility] [place] [address] Barbara Blue MD Appointment Request 03/15/2025 Telephone [facility] [place] [address] Kody Clark MD chart prep 03/15/2025 Telephone [facility] [place] [address] Barbara Blue MD Nurse Triage 02/08/2025 1:00 PM EDT Office Visit [facility] [place] [address] Barbara lBue MD Elevated BP without diagnosis of hypertension (Primary Dx); Systemic lupus erythematosus, unspecified SLE type, unspecified organ involvement status (CMS/HCC); Seizure disorder ([facility] Tobacco dependence; Loud snoring; Allergic rhinitis, unspecified seasonality, unspecified trigger; Mass of lower outer quadrant of right breast 02/08/2025 Refill [facility] [address] [place] [address] Barbara Blue MD 02/08/2025 Travel 02/07/2025 Telephone [facility] [address] [place], [place] [phone] Barbara Blue MD Chart Prep 02/07/2025 Travel 01/19/2025 Telephone [facility] [address] [place] [address] Barbara Blue MD Medication Question from Last 3 Months Immunizations Immunization Administration Dates Next Due Influenza injectable quadriv alent preservative free 04/24/2020,05/05/2019,05/15/2016 Influenza, IIV3, injectable 05/31/2014, 8 Influenza, seasonal, injecta ble, preservative free 07/15/2024 Pfizer Covid-19 Vaccine 12+ 07/15/2024 Pneumococcal Conjugate PCV 20 07/15/2024 Tdap 07/15/2024,12/09/2012 Family History Medical History Relation Name Comments Heart failure Sister heart transplant Sister Relation Name Status Comments Sister Social History Tobacco Use Types Packs/Day Years Used Date Smoking Tobacco: Former Cigarettes Tobacco Cessation:Counseling Given: Not Answered Alcohol Use Standard Drinks/Week Comments Not Currently [...] Answer Date Recorded Internet Access Q1 Yes 01/25/2025 Internet Access Q2 Not on file 01/25/2025 Comments Unknown Sex and Gender Information Value Date Recorded Sex Assigned at Female 05/20/2022 10:15 AM EDT Legal Sex Female 10:15 AM EDT Gender Identity Female 05/20/2022 10:15 AM EDT Sexual Orientation Choose not to disclose 2021 10:15 AM EDT Last Filed Vital Signs Vital Sign Reading Time Taken Comments Blood Pressure 120/80 03/22/2025 11:15 AM EDT Pulse 80 03/22/2025 11:15 AM EDT Temperature 36.6 C (97.8 F) 03/22/2025 11:15 AM EDT Respiratory Rate 18 03/22/2025 11:1 5 AM EDT Oxygen Saturation 100% 03/22/2025 11: 15 AM EDT Inhaled Oxygen Concentration - - Weight 67.9 kg (149 lb 12.8 oz) 025 11:15 AM EDT Height 157.5 cm (5' 2 ) 02/08/2025 1:05 PM EDT Body Mass Index 27.4 02/08/2025 1:05 PM EDT Plan of Treatment Upcoming Encounters Date Type Department Care Team (Late st Contact Info) Description 05/16/2025 3:00 PM EDT Office Visit [facility] [address] [place], [place] [phone] Barbara Blue MD [address] [place] [address] 06/24/2025 2:30 PM EST Office Visit [facility] [address] [place], [place] [phone] Nelli Tenorio, OD [address] [place] [address] Health Maintenance Due Date Last Done Comments HPV Vaccines (1 - 3-dose series) 01/01/1996 Mammogram 08/14/2023 08/14/2021, 12/20, 01/03/2021 Depression Monitoring 01/13/2025 07/15/2024, 024 Influenza Vaccine (#1) 2025 , 04/24/2020, 05/05/2019, Additional history exists Alcohol/Substance Use Screening 07/15/2025 07/15/2024 Family Planning (PISQ) 08/03/2025 08/03/2024 SDOH Screening 11/17/2025 11/17/2024 Disability Screening 02/07/2026 02/07/2025 Tobacco Screening 03/22/2026 03/22/2025 Cervical Cancer Screening 08/03/2029 HPV/Cotest 08/03/2029 08/03/2024 Pap Smear 08/03/2029 08/03/2024, 11/22/2020 Zoster Vaccines (1 of 2) 2030 DTaP/Tdap/Td Vaccines (3 - Td or Tdap) 07/15/2034 07/15/2024, 12/09/2012 RSV Patients and Patients Aged 60 years or older (1 - 1-dose 75+ series) 01/01/2056 COVID-19 Vaccine Completed 07/15/2024, 05/2023, 12/19/2020, Additional history exists HIV Screening Completed 07/15/2024 Hepatitis C Screening Completed 07/15/2024 Pneumococcal Vaccine: Pediatrics (0 to 5 Years) and At-Risk Patients (6 to 49) Years Aged Out 07/15/2024 No longer eligible based on patient's age to complete this topic HIB Vaccines Aged Out No longer eligi ble based on patient's age to complete this topic Hepatitis A Vaccines Aged Out No long er eligible based on patient's age to complete this topic Hepatitis B Vaccines Discontinued IPV Vaccines Aged Out No longer eligi ble based on patient's age to complete this topic Meningococcal B Vaccine Aged Out No l onger eligible based on patient's age to complete this topic Meningococcal Vaccine Aged Out No nita leah eligible based on patient's age to complete this topic RSV under 20 months Aged Out No longe r eligible based on patient's age to complete this topic Rotavirus Vaccines Aged Out No longer eligible based on patient's age to complete this topic Procedures Procedure Name Priority Date/Time Associated Diagnosis Comments HPV MRNA E6/E7 REFLEX TO HPV 16, 18/45 Routine 08/03/2024 12:00 AM EST PAP SMEAR Routine 08/03/2024 12:00 AM EST Routine cervical smear HEPATITIS C AB W/REFL TO HCV RNA, QN, PCR Routine 07/15/2024 1:38 PM EST Routine screening for STI (sexually transmitted infection) HIV 1/2 ANTIGEN/ANTIBODY, FOURTH GENERATION W/RFL Routine 07/15/2024 1:38 PM EST Routine screening for STI (sexually transmitted infection) MAMMOGRAM GENERIC Routine 08/14/2021 2: 55 PM EST from Last 3 Months or Most Recently Relevant to Health Maintenance Results * HPV mRNA E6/E7 w/Reflex to HPV Genotypes 16, 18/45 (08/03/2024 12:00 AM EST) us Historical Provider MD LAB CYTOLOGY ORDERABLES F inal Result * Pap Smear (08/03/2024 12:00 AM EST) Swab Cervix uteri structure / Unknown 08/03/2024 08/04/2024 6:20 AM EST Narrative [facility] - 08/10/2024 2:17 PM EST ----- ------- Name: Neisha Gutiérrez Age/Sex: 43/F : 1980 Unit#: [id number] Attend Dr: KARIN ASHTON Re08/03/24 Status: DEP REF Location: [facility] Disch: ----- ------- SPEC : [id number] RECD: 08/04/24 STATUS: SHAYLA DAVIES NUM: [id number] BETHANY: 08/03/24-[address]: KARIN ASHTON [facility] ENTERED: 08/04/24 SP TYPE: Pap Smr OTHR DR: ORDERED: Pap Smear Interpretation Satisfactory for evaluation. Negative for intraepithelial lesion or malignancy. Coccobacilli consistent with shift in vaginal catherine. HPV High Risk: Negative HPV Genotyping 16: Negative HPV Genotyping 18: Negative Clinical Information LMP: 07/24/24 Previous PAP test: 2020 NIL Other surgery: Other history: IUD Material Received ThinPrep-Cervix ----- ------- Signed (signature on file) ZIYAD Ambrocio ([facility]) 08/10/24 1417 ----- ------- END OF REPORT Karin Ashton CNM LAB CYTOLOGY ORDERABLES F inal Result Performing Organization Address [facility]/ZIP Co de Phone Number [facility] [address] [place] [phone] * Hepatitis C Antibody with Reflex to HCV, RNA, Quantitative, Real-Time PCR (07/15/2024 1:38 PM EST) Hepatitis C Antibody Nonreactive Nonreactive [facility] Comment:Antibodies to HCV no t detected; does not exclude early acuteHCV infection. Blood Venous blood specimen / Unknown 07/15/2024 1:38 PM EST 07/15/2024 4:01 PM EST Barbara Blue MD LAB BLOOD ORDERABLES Final Resul t Performing Organization Address [facility] Co de Phone Number [facility] [address] [place] [phone] * HIV-1/2 Antigen and Antibodies, Fourth Generation, with Reflexes (07/15/2024 1:38 PM EST) HIV AB/AG Nonreactive Nonreactive [facility] Comment:HIV-1 p24 Ag and/or HIV-1/HIV-2 Ab not detected.A test result that is nonreactive does not exclude thepossibility of exposure to or infection with HIV-1 and/orHIV-2. Nonreactive results in this assay for individualswith prior exposure to HIV-1 and/or HIV-2 may be due toantigen and antibody levels that are below the limit ofdetection of this assay.[employer] HIV Ag/Ab Combo assay result andsupplemental assay results should be interpreted inconjunction with the patient's clinical presentation,history and other laboratory results. If the results areinconsistent with clinical evidence, additional testing issuggested to confirm the result. Blood Venous blood specimen / Unknown 07/15/2024 1:38 PM EST 07/15/2024 4:01 PM EST us Barbara Blue MD LAB BLOOD ORDERABLES Final Resul t [facility] [address] [place] [address] [phone] * Mammography Report 1 (08/14/2021 2:55 PM EST) Anatomical Region Laterality Modality Breast Bilateral Mammography 08/14/2021 2:55 PM EST Narrative 08/14/2021 5:11 PM EST Refer to the Notes tab for result details [facility] Procedure: Mammography Report 1 Procedure Note Provider, MD Alcides - 10/13/2022 Refer to the Notes tab for result details [facility] Procedure: Mammography Report 1 us Susan Baldwin [facility] IMG BI PROCEDURES Final Result from Last 3 Months or Most Recently Relevant to Health Maintenance Insurance [facility] [address] [place] [address] [place] [phone] Care Teams Information Technology Professor Relationship Specialty Start Date End Date Barbara Blue MD [address] [place] [phone] PCP - General Family Medicine 06/20/23
--- OUTSIDE RECORDS SUMMARY | 2025-04-13 15:14 | XMS_ITS | Encounter Summary ---
Author Organization [employer] Address [address] [place] [address] [address] [place] [address] Care Team Providers Care Application Security Specialist Name Role Phone Barbara Blue MD Primary Care Provider [phone] Reason for Visit * Reason Onset Date Comments Medication Question 01/19/2025 Encounter Details Date Type Department Care Team ([facility] st Contact Info) Description 01/19/2025 Telephone [facility] MEDICINE [address] [place], [place] [phone] Barbara Blue MD [address] [place], [place] [phone] Medication Question Social History Tobacco Use Types Packs/Day Years [...] encounter Miscellaneous Notes * Telephone Encounter - Kori Vega RN - 01/19/2025 3:06 PM EDT Telephone call returned to patient in regards to below message. Patient can call to ask for medication to transfer. Patient stating she needs a new refill prescribe at the [facility]/pharmacy #[address] [place] [address]. Since patient picked up a few pill at a time since they were low. Patient verbalized understanding and denied having any further questions or concerns at this time. Patient tofollow up as needed. * Telephone Encounter - Sven Valerio - 01/19/2025 10:32 AM EDT Tc from pt calling in regards to carBAMazepine XR (TEGretol-XR) 400 MG 12 hr tablet [facility]ating [facility] [address] [facility] and she is requesting for script to be sent to [facility]/pharmacy [address] [place] [address]. If any questions you can contact pt at [phone]. documented in this encounter Plan of Treatment Upcoming Encounters Date Type Department Care Team (Late st Contact Info) Description 05/16/2025 3:00 PM EDT Office Visit [facility] MEDICINE [address] [place] [address] Barbara Blue MD [address] [place] [address] 06/24/2025 2:30 PM EST Office Visit [facility] OPTOMETRY [address] [place], [place] [phone] Jona, Nelli, OD [address] [place] [address] documented as of this encounter Visit Diagnoses Not on filedocumented in this encounter Additional Health Concerns Assessment Noted Time PHQ-9 Depression Total Score: 10 024 12:52 PM EST documented as of this encounter Care Teams Application Security Specialist Relationship Specialty Start Date End Date Barbara Blue MD [address] [place], [place] [phone] PCP - General Family Medicine 06/20/23 documented as of this encounter
--- OUTSIDE RECORDS SUMMARY | 2025-04-13 15:14 | XMS_ITS | Encounter Summary ---
Author Organization [employer] Address [address] [facility] [address] [place] [address] Care Team Providers Care Consumer Lending Manager Name Role Phone Barbara Blue MD Primary Care Provider [phone] Encounter Details Date Type Department Care Team ([facility] st Contact Info) Description 11/17/2024 Orders Only [facility] [address] [place], [place] [phone] Nimco [place] Social History Tobacco Use Types Packs/Day Years [...] Description 05/16/2025 3:00 PM EDT Office Visit [facility] MEDICINE [address] [place] [address] Barbara Blue MD [address] [place] [address] 06/24/2025 2:30 PM EST Office Visit [facility] OPTOMETRY [address] [place] [address] Nelli Tenorio, OD [address] [place] [address] documented as of this encounter Procedures Procedure Name Priority Date/Time Associated Diagnosis Comments HPV MRNA E6/E7 REFLEX TO HPV 16, 18/45 Routine 08/03/2024 12:00 AM EST documented in this encounter Results * HPV mRNA E6/E7 w/Reflex to HPV Genotypes 16, 18/45 (08/03/2024 12:00 AM EST) us Historical Provider LAB CYTOLOGY ORDERABLES F inal Result documented in this encounter Visit Diagnoses Not on filedocumented in this encounter Additional Health Concerns Assessment Noted Time PHQ-9 Depression Total Score: 10 024 12:52 PM EST documented as of this encounter Care Teams Consumer Lending Manager Relationship Specialty Start Date End Date Barbara Blue MD [address] [place] [address] PCP - General Family Medicine 06/20/23 documented as of this encounter
--- OUTSIDE RECORDS SUMMARY | 2025-04-13 15:15 | XMS_ITS | Encounter Summary ---
Author Organization [employer] Address [address] [place] [address] 7t [place] [address] Care Team Providers Care Chemical Lab Supervisor Name Role Phone Barbara Blue MD Primary Care Provider [phone] Reason for Visit * Reason Comments Med Refill Encounter Details Date Type Department Care Team ([facility] st Contact Info) Description 04/11/2025 Refill [facility] MEDICINE [address] [place], [place] [phone] Angeles Yi, ANP [address] [place], [place] [phone] Social History Tobacco Use Types Packs/Day Years [...] Description 05/16/2025 3:00 PM EDT Office Visit [facility] MEDICINE [address] [place] [address] Barbara Blue MD [address] [place] [address] 06/24/2025 2:30 PM EST Office Visit [facility] OPTOMETRY [address] [place] [address] Jona, Nelli, OD [address] [place] [address] documented as of this encounter Visit Diagnoses Not on filedocumented in this encounter Additional Health Concerns Assessment Noted Time PHQ-9 Depression Total Score: 10 024 12:52 PM EST documented as of this encounter Care Teams Chemical Lab Supervisor Relationship Specialty Start Date End Date Barbara Blue MD [address] [place] [address] PCP - General Family Medicine 06/20/23 documented as of this encounter
--- OUTSIDE RECORDS SUMMARY | 2025-04-13 15:15 | XMS_ITS | Encounter Summary ---
Author Organization [employer] Address [address] [place] [address] [address]t [place] [address] Care Team Providers Care Neonatal Intensive Care Unit Nurse Name Role Phone Barbara Blue MD Primary Care Provider [phone] Reason for Visit * Reason Comments Med Refill Encounter Details Date Type Department Care Team ([facility] st Contact Info) Description 04/11/2025 Refill [facility] MEDICINE [address] [place], [place] [phone] Barbara Blue MD [address] [place], [place] [phone] Social History Tobacco Use Types Packs/Day Years [...] Description 05/16/2025 3:00 PM EDT Office Visit [facility] MEDICINE [address] [place] [address] Barbara Blue MD [address] [place] [address] 06/24/2025 2:30 PM EST Office Visit [facility] OPTOMETRY [address] [place] [address] Jona, Nelli, OD [address] [place] [address] documented as of this encounter Visit Diagnoses Not on filedocumented in this encounter Additional Health Concerns Assessment Noted Time PHQ-9 Depression Total Score: 10 024 12:52 PM EST documented as of this encounter Care Teams Neonatal Intensive Care Unit Nurse Relationship Specialty Start Date End Date Barbara Blue MD [address] [place] [address] PCP - General Family Medicine 06/20/23 documented as of this encounter
--- OUTSIDE RECORDS SUMMARY | 2025-04-13 15:15 | XMS_ITS | Encounter Summary ---
Author Organization [employer] Address [address] [facility] 7t [place] [address] Care Team Providers Care Brick Or Block Maker Name Role Phone Brisa Mota JUNIOR JAVA DEVELOPER Primary Care Provider Barbara Hollins MD Primary Care Provider [phone] Reason for Visit * Reason Onset Date Comments triage 10/22/2022 Encounter Details Date Type Department Care Team (Late st Contact Info) Description 10/22/2022 Telephone [facility] MEDICINE [address] [place] [address] Brisa Mota FNP triage Social History Tobacco Use Types Packs/Day Years Used Date Smoking Tobacco: Some Days Cigarettes Depression Answer Date Recorded Patient Health Questionnaire-9 Score 0 10/22/2022 Depression Answer Date Recorded Patient Health Questionnaire-2 Score 0 10/22/2022 Comments Unknown Sex and Gender Information Value Date Recorded Sex Assigned at Female 05/20/2022 10:15 AM EDT Legal Sex Female 10:15 AM EDT Gender Identity Female 05/20/2022 10:15 AM EDT Sexual Orientation Choose not to disclose 2021 10:15 AM EDT COVID-19 Exposure Response Date Recorded In the last 10 days, have yo u been in contact with someone who was confirmed or suspected to have Coronavirus/COVID-19? No / Unsure 10/22/2022 2:32 PM EDT documented as of this encounter Functional Status * Over the past 2 weeks, how often have you been bothered by any of the following problems? Question Answer Date of Assessment Author Patient Health Questionnaire-2 Score 0 04/0 10/2022 2:54 PM EDT Aparna Valerio * Over the past 2 weeks, how often have you been bothered by any of the following problems? Question Answer Date of Assessment Author Little interest or pleasure in doing things Not at all 10/22/2022 2:54 PM EDT Dinorah Valerio Feeling down, depressed, or hopeless Not at all 10/22/2022 2:54 PM EDT Dinorah Valerio Trouble falling or staying asleep, or sleeping too much Not at all 10/22/2022 2:54 PM EDT Aparna Roldan Feeling tired or having bill le energy Not at all 10/22/2022 2:54 PM EDT Dinorah Valerio Poor appetite or overeating Not at all 10/22/2022 2: 54 PM EDT Aparna Valerio Feeling bad about yourself - or that you are a failure or have let yourself or your family down Not at all 10/22/2022 2:54 PM EDT Aparna Phillips Trouble concentrating on thi ngs, such as reading the newspaper or watching television Not at all 10/22/2022 2:54 PM EDT Dinorah Valerio Moving or speaking so slowly that other people could have noticed? Or the opposite - being so fidgety or restless that you have been moving around a lot more than usual. Not at all 10/22/2022 2:54 PM EDT Dinorah Valerio Thoughts that you would be better off or hurting yourself in some way Not at all 10/22/2022 2:54 PM EDT Sal Valerio Patient Health Questionnaire -9 Score 0 10/22/2022 2:54 PM EDT Dinorah Valerio documented as of this encounter Miscellaneous Notes * Telephone Encounter - Gilma Brown RN - 10/22/2022 11:00 AM EDT Triage call Pt reports seeing a pot pusher prior to Covid and was positive for Lupus. Pt has not followed this up but, in last 4-5 days has had some symptoms of body aches, swollen legs, sharp pain in chest x1, some stomach pains and occ diarrhea. Symptoms are vague not specific. Pt has taken tylenol which helps a little at bed time. Pt agrees with disposition and home care reviewed . apt obtained at 230pm today with Dr. Dangelo , home care reviewed. Protocol Used: Muscle Aches and Body Pain (Adult) Protocol-Based Disposition: See in Office or Video Visit within 3 Days Video visit not offered Positive Triage Questions: * Moderate pain (e.g., interferes with normal activities) and present > 3 days * Patient wants to be seen * All higher-acuity triage questions were negative Care Advice Discussed: * Reassurance and Education - Mild Muscle Pain * Pain Medicines * Pain Medicines - Extra Notes and Warnings * Reasons To Call Back - Fever occurs - Pain lasts longer than 7 days - You become worse * Telephone Encounter - Mo Yepez - 10/22/2022 10:05 AM EDT Symptoms: Body Aches, Pain - Severe, Leg Swelling - Not From Injury Outcome: Schedule an urgent appointment (within 1 hour) or talk to a nurse or provider soon Reason: No high acuity concerns reported by caller The caller accepted this outcome documented in this encounter Plan of Treatment Upcoming Encounters Date Type Department Care Team ([facility] st Contact Info) Description 05/16/2025 3:00 PM EDT Office Visit [facility] MEDICINE [address] [place] [address] Barbara Blue MD [address] [place] [address] 06/24/2025 2:30 PM EST Office Visit [facility] OPTOMETRY [address] [place] [address] Nelli Tenorio OD [address] [place] [address] documented as of this encounter Visit Diagnoses Not on filedocumented in this encounter Additional Health Concerns Assessment Noted Time PHQ-9 Depression Total Score: 0 10/23/19 23 2:54 PM EDT documented as of this encounter Care Teams Brick Or Block Maker Relationship Specialty Start Date End Date Nakul, Brisa Tere, JUNIOR JAVA DEVELOPER PCP - General Family Medicine 01/02/22 12/22/22 Barbara Blue MD [address] [place] [address] PCP - General Family Medicine 06/20/23 documented as of this encounter
== END 2025-04-13 12:45 | disposition home or self-care (01) ==
LOC: HO.MAMMO 12:44
PROVIDERS: PCP Family Medicine; Visit Provider Advanced Practice Midwife
DX: N63.12 Unspecified lump in the right breast, upper inner quadrant (principal)
CPT/HCPCS: 76642; 77062; 77066

== ENCOUNTER → 2025-04-13 13:00 | Outpatient (BNV) | payer MEDICAID, SELFPAY | PROVIDERS: PCP Family Medicine; Visit Provider Internal Medicine | DX: N63.11 Unspecified lump in the right breast, upper outer quadrant (principal); N64.4 Mastodynia; R92.8 Other abnormal and inconclusive findings on diagnostic imaging of breast | CPT/HCPCS: 76642; 77062; 77066 ==

== ENCOUNTER 2025-05-16 15:55 | Outpatient (REF) | payer MEDICAID, SELFPAY ==
--- OUTSIDE RECORDS SUMMARY | 2025-05-16 15:00 | XMS_ITS | Encounter Summary ---
Author Organization [employer] Address [address] [place] [address] 7t [place] [address] Care Team Providers Care Professor Of Exercise Science Name Role Phone Barbara Blue MD Primary Care Provider [phone] Encounter Details Date Type Department Care Team ([facility] st Contact Info) Description 05/16/2025 3:00 PM EDT Office Visit [facility] MEDICINE [address] [place], [place] [phone] Barbara Blue MD [address] [place], [place] [phone] Other fatigue (Primary Dx); Encounter for immunization; Weight gain Social History Tobacco Use Types Packs/Day Years Used Date Smoking Tobacco: Former Cigarettes Alcohol Use Standard Drinks/Week Comments Not Currently 0 (1 standard drink = 0.6 oz pur e alcohol) Depression Answer Date Recorded Patient Health Questionnaire-9 Score 9 05/16/2025 Patient Health Questionnaire-9 Score 9 05/16/2025 Last PHQ-9: Questionnaire Data Not on file 1 Housing Stability Answer Date Recorded What is [...] Answer Date Recorded Patient Health Questionnaire-2 Score 3 05/16/2025 Internet Access Answer Date Recorded Internet Access Q1 Yes 01/25/2025 Internet Access Q2 Not on file 01/25/2025 Comments No Sex and Gender Information Value Date Recorded Sex Assigned at Female 05/20/2022 10:15 AM EDT Legal Sex Female 10:15 AM EDT Gender Identity Female 05/20/2022 10:15 AM EDT Sexual Orientation Choose not to disclose 2021 10:15 AM EDT documented as of this encounter Last Filed Vital Signs Vital Sign Reading Time Taken Comments Blood Pressure 110/80 05/16/2025 3:17 PM EDT Pulse 74 05/16/2025 3:17 PM EDT Temperature 36.1 C (96.9 F) 05/16/2025 3:17 PM EDT Respiratory Rate 24 05/16/2025 3:17 PM EDT Oxygen Saturation - - Inhaled Oxygen Concentration - - Weight 70.7 kg (155 lb 12.8 oz) 05/16/2025 3:17 PM EDT Height 157.5 cm (5' 2 ) 05/16/2025 3:17 PM EDT Body Mass Index 28.5 05/16/2025 3:17 PM EDT documented in this encounter Functional Status * Over the past 2 weeks, how often have you been bothered by any of the following problems? Question Answer Date of Assessment Author Patient Health Questionnaire -2 Score 3 05/16/2025 4:01 PM EDT Ilene Ha [place] * Little interest or pleasure in doing things Answer Date of Assessment Author More than half the days 05/16/2025 4:01 PM EDT Pearl Richmond [place] * Feeling down, depressed, or hopeless Answer Date of Assessment Author Several days 05/16/2025 4:01 PM EDT Pearl Ha [place] * Trouble falling or staying asleep, or sleeping too much Answer Date of Assessment Author Several days 05/16/2025 4:01 PM Pearl Roldan [place] * Feeling tired or having little energy Answer Date of Assessment Author Nearly every day 05/16/2025 4:01 PM Pearl Roldan [place] * Poor appetite or overeating Answer Date of Assessment Author Several days 05/16/2025 4:01 PM Pearl Roldan [place] * Feeling bad about yourself - or that you are a failure or have let yourself or your family down Answer Date of Assessment Author Not at all 05/16/2025 4:01 PM Pearl Roldan [place] * Trouble concentrating on things, such as reading the newspaper or watching television Answer Date of Assessment Author Several days 05/16/2025 4:01 PM Pearl Roldan MA * Moving or speaking so slowly that other people could have noticed? Or the opposite - being so fidgety or restless that you have been moving around a lot more than usual. Answer Date of Assessment Author Not at all 05/16/2025 4:01 PM Pearl Roldan MA * Thoughts that you would be better off or hurting yourself in some way Answer Date of Assessment Author Not at all 05/16/2025 4:01 PM Pearl Roldan [place] * Patient Health Questionnaire-9 Score Answer Date of Assessment Author 9 05/16/2025 4:01 PM Pearl Roldan [place] * How difficult have these problems made it for you to do your work, take care of things at home, or get along with other people? Answer Date of Assessment Author Somewhat difficult 05/16/2025 4:01 PM Pearl Wilson [place] documented as of this encounter Plan of Treatment Upcoming Encounters Date Type Department Care Team (Late st Contact Info) Description 06/24/2025 2:30 PM EST Office Visit [facility] OPTOMETRY [address] [place] [address] Nelli Tenorio, OD [address] [place] [address] Scheduled Orders Name Type Priority Associated Diagnoses Orde r Schedule Vitamin B12 (Cobalamin) and Folate Panel, Serum Lab Routine Other fatigue Expected: 05/16/2025 (Approximate), Expires: 05/16/2026 documented as of this encounter Procedures Procedure Name Priority Date/Time Associated Diagnosis Comments TSH W/REFLEX TO FT4 Routine 05/16/2025 4 :02 PM EDT Weight gain CBC WITH AUTO DIFFERENTIAL Routine 05/16/2025 4:02 PM EDT Weight gain COMPREHENSIVE METABOLIC PANEL Routine 05/16/2025 4:02 PM EDT Weight gain documented in this encounter Results * TSH with Reflex to Free T4 (05/16/2025 4:02 PM EDT) TSH reflex Free T4 0.43 0.32 - 4.0 uIU/mL [facility] Blood 05/16/2025 4:02 PM EDT 05/16/2025 5:51 PM EDT us Barbara Blue MD LAB BLOOD ORDERABLES Final Resul t [facility] [address] [place] [phone] * (ABNORMAL) Comprehensive Metabolic Panel (05/16/2025 4:02 PM EDT) Sodium 137 135 - 145 mmol/L [facility] Potassium 4.2 3.3 - 5.1 mmol/L [facility] Chloride 103 96 - 108 mmol/L [facility] Carbon Dioxide 28 22 - 29 mmol/L [facility] Anion Gap 10(L) 12 - 20 [facility] Urea Nitrogen (BUN) 11 9 - 16 mg/dL [facility] Creatinine, Serum 0.60 0.5 - 1.4 mg/dL [facility] Estimated Glomerular Filt Rate >60 [facility] Comment:Chronic Kidney Disea se: Estimated GFR < 60 mL/min/1.06p0Xmnwip Kidney Disease: Estimated GFR < 15 mL/min/1.73m2 Glucose 90 60 - 115 mg/dL [facility] Calcium 8.8 8.4 - 10.2 mg/dL [facility] Bilirubin, Total 0.1 0.0 - 1.0 mg/dL [facility] Aspartate Amino Transferase 17 5 - 31 U/L [facility] Alanine Aminotransferase 23 0 - 31 U/L [facility] Total Protein 7.4 6.5 - 8.0 g/dL [facility] Albumin Level 4.5 3.5 - 5.0 g/dL [facility] Alkaline Phosphatase 80 39 - 117 U/L [facility] Blood Venous blood specimen / Unknown 05/16/2025 4:02 PM EDT 05/16/2025 5:51 PM EDT us Barbara Blue MD LAB BLOOD ORDERABLES Final Resul t [facility] [address] [place] [phone] * (ABNORMAL) CBC auto differential (05/16/2025 4:02 PM EDT) White Blood Count 5.6 4.8 - 10.8 X10*3/uL [facility] Red Blood Count 4.04(L) 4.20 - 5.50 X10*6/uL [facility] Hemoglobin 11.9(L) 12.0 - 16.0 g/dl [facility] Hematocrit 35.8(L) 37.0 - 47.0 % [facility] Mean Corpuscular Volume 88.6 80.0 - 98.0 fL [facility] Mean Corpuscular Hemoglobin 29.5 27.0 - 33.0 pg [facility] Mean Corpuscular HGB Conc 33.2 31.0 - 35.0 g/dl [facility] Red Cell Distribution Width 13.3 11.0 - 16.0 % [facility] Platelet Count 273 160 - 400 X10*3/uL [facility] Mean Platelet Volume 9.3(L) 9.4 - 12.3 fL [facility] Neutrophils Percent Auto 51.3 45 - 73 % [facility] Imm Gran Pct Auto 0.2 0.0 - 0.4 % [facility] Lymphocytes Percent Auto 37.2 20 - 40 % [facility] Monocytes Percent Auto 9.7 2 - 11 % [facility] Eosinophils Percent Auto 0.9 0 - 4 % [facility] Basophils Percent Auto 0.7 0 - 2 % [facility] NRBC Pct Auto 0.0 0.0 - 0.2 /100WBC [facility] Neutrophils Absolute Auto 2.9 2.0 - 8.3 x10*3/uL [facility] Imm Gran Abs Auto 0.01 0.00 - 0.03 X10*3/uL [facility] Lymphocytes Absolute Auto 2.1 1.2 - 4.9 X10*3/uL [facility] Monocytes Absolute Auto 0.5 0.1 - 1.2 X10*3/uL [facility] Eosinophils Absolute Auto 0.1 0.0 - 0.4 X10*3/uL [facility] Basophils Absolute Auto 0.0 0.0 - 0.2 X10*3/uL [facility] NRBC Abs Auto 0.000 0.0 - 0.012 X10*3/uL [facility] Blood Venous blood specimen / Unknown 05/16/2025 4:02 PM EDT 05/16/2025 5:51 PM EDT us Barbara Blue MD LAB BLOOD ORDERABLES Final Resul t [facility] [address] [place] [address] [phone] documented in this encounter Visit Diagnoses Diagnosis Other fatigue- Primary Encounter for immunization Weight gain Other symptoms concerning nutrition, metabolism, and development documented in this encounter Additional Health Concerns Assessment Noted Time PHQ-9 Depression Total Score: 9 05/16/20 25 4:01 PM EDT documented as of this encounter Care Teams Professor Of Exercise Science Relationship Specialty Start Date End Date Barbara Blue MD [address] [place] [address] PCP - General Family Medicine 06/20/23 documented as of this encounter
[2025-05-16 17:57] LABS: MANUAL DIFF FLAG NO
[2025-05-16 18:09] LABS: Hematocrit 35.8 % (37.0-47.0); Hemoglobin 11.9 g/dl (12.0-16.0); Imm Gran Abs Auto 0.01 X10*3/uL (0.00-0.03); Imm Gran Pct Auto 0.2 % (0.0-0.4); Lymphocytes Absolute Auto 2.1 X10*3/uL (1.2-4.9); Mean Corpuscular HGB Conc 33.2 g/dl (31.0-35.0); Mean Corpuscular Hemoglobin 29.5 pg (27.0-33.0); Mean Corpuscular Volume 88.6 fL (80.0-98.0); NRBC Abs Auto 0.000 X10*3/uL (0.0-0.012); NRBC Pct Auto 0.0 /100WBC (0.0-0.2); Platelet Count 273 X10*3/uL (160-400); Red Blood Count 4.04 X10*6/uL (4.20-5.50); White Blood Count 5.6 X10*3/uL (4.8-10.8)
[2025-05-16 18:41] LABS: Alanine Aminotransferase 23 U/L (0-31); Albumin Level 4.5 g/dL (3.5-5.0); Alkaline Phosphatase 80 U/L (39-117); Anion Gap 10 (12-20); Aspartate Amino Transferase 17 U/L (5-31); Blood Urea Nitrogen 11 mg/dL (9-16); Calcium 8.8 mg/dL (8.4-10.2); Carbon Dioxide 28 mmol/L (22-29); Chloride 103 mmol/L (96-108); Estimated Glomerular Filt Rate > 60; Potassium 4.2 mmol/L (3.3-5.1); Sodium 137 mmol/L (135-145); Total Protein 7.4 g/dL (6.5-8.0)
--- OUTSIDE RECORDS SUMMARY | 2025-05-16 18:55 | XMS_ITS | Encounter Summary ---
Author Organization [employer] Address [address] [facility] 7t [place] [address] Care Team Providers Care Hr Administrator Name Role Phone Brisa Mota SHUTTLE OPERATOR Primary Care Provider Barbara Hollins MD Primary Care Provider [phone] Reason for Visit * Reason Onset Date Comments triage 10/22/2022 Encounter Details Date Type Department Care Team (Late st Contact Info) Description 10/22/2022 Telephone [facility] MEDICINE [address] [place] [address] Brisa Mota FNP triage Social History Tobacco [...] EDT Triage call Pt reports seeing a visitor services associate prior to Covid and was positive for [...] Description 06/24/2025 2:30 PM EST Office Visit [facility] OPTOMETRY [address] [place] [address] Jona, Nelli, OD [address] [place] [address] documented as of this encounter Visit Diagnoses Not on filedocumented in this encounter Additional Health Concerns Assessment Noted Time PHQ-9 Depression Total Score: 0 10/23/19 23 2:54 PM EDT documented as of this encounter Care Teams Hr Administrator Relationship Specialty Start Date End Date Brisa Mota FNP PCP - General Family Medicine 01/02/22 12/22/22 Barbara Blue MD [address] [place] [address] PCP - General Family Medicine 06/20/23 documented as of this encounter
--- OUTSIDE RECORDS SUMMARY | 2025-05-16 18:55 | XMS_ITS | Encounter Summary ---
Author Organization [employer] Address [address] [facility] 7t [place] [address] Care Team Providers Care Sand Hauler Name Role Phone Barbara Blue MD Primary Care Provider [phone] Reason for Referral * Consultation (Routine) - Closed Specialty Diagnoses / Procedures Referred By Contac t Referred To Contact Neurology Diagnoses Seizure disorder (CMS/HCC) (HCC) Barbara Blue MD [address] [place] [phone] Phone: tel: fax: [facility] Neurology [address] [place], [place] Phone: tel: fax: Referral ID Status Reason Start Date Expiration Date V isits Requested Visits Authorized [id number] Closed Specialty Services Required 07/29/2024 07/29/2025 6 6 Encounter Details Date Type Department Care Team (Late st Contact Info) Description 07/28/2024 Orders Only [facility] MEDICINE [address] [place] [phone] Barbara Blue MD [address] [place], [place] [phone] Seizure disorder (CMS/HCC) (Primary Dx) Social History [...] Description 06/24/2025 2:30 PM EST Office Visit [facility] OPTOMETRY [address] [place] [address] Jona, Nelli, OD [address] [place] [address] Pending Results Name Type Priority Associated Diagnoses Date /Time Referral to Neurology Outpatient Referral Routine Seizure disorder (CMS/HCC) 09/07/2024 Scheduled Referrals Name Type Priority Associated Diagnoses Orde r Schedule Referral to Neurology Outpatient Referral Routine Seizure disorder (CMS/HCC) Expected: 07/28/2024 (Approximate), Expires: 07/28/2025 documented as of this encounter Visit Diagnoses Diagnosis Seizure disorder (CMS/HCC) (HCC)- Primary Unspecified epilepsy without mention of intractable epilepsy documented in this encounter Additional Health Concerns Assessment Noted Time PHQ-9 Depression Total Score: 10 024 12:52 PM EST documented as of this encounter Care Teams Sand Hauler Relationship Specialty Start Date End Date Barbara Blue MD [address] [place] [address] PCP - General Family Medicine 06/20/23 documented as of this encounter
--- OUTSIDE RECORDS SUMMARY | 2025-05-16 18:55 | XMS_ITS | Encounter Summary ---
Author Organization [employer] Address [address] [place] [address] 7t [place] [address] Care Team Providers Care Home Aid Name Role Phone Barbara Blue MD Primary Care Provider [phone] Encounter Details Date Type Department Care Team (Latest Contact Info) Description 04/29/2025 Results Follow-Up [facility] MEDICINE [address] [place] [address] Amanda Bird CNM [address] [place] [address] BI Mammogram Diagnostic Tomosynthesis Bilateral Social History Tobacco Use Types Packs/Day Years [...] as of this encounter Miscellaneous Notes * Result Encounter Note - Amanda Bird CNM - 04/29/2025 11:55 AM EDT BIRADS 3, 6m followup advised. Please update tracking. Thanks! documented in this encounter Plan of Treatment Upcoming Encounters Date Type Department Care Team (Late st Contact Info) Description 06/24/2025 2:30 PM EST Office Visit [facility] OPTOMETRY [address] [place] [address] Jona, Nelli, OD [address] [place] [address] documented as of this encounter Visit Diagnoses Not on filedocumented in this encounter Additional Health Concerns Assessment Noted Time PHQ-9 Depression Total Score: 10 024 12:52 PM EST documented as of this encounter Care Teams Home Aid Relationship Specialty Start Date End Date Barbara Blue MD [address] [place] [address] PCP - General Family Medicine 06/20/23 documented as of this encounter
--- OUTSIDE RECORDS SUMMARY | 2025-05-16 18:55 | XMS_ITS | Encounter Summary ---
Author Organization [employer] Address [address] [facility] [address] 7t [place] [address] Care Team Providers Care Bridge Gang Worker Name Role Phone Barbara Blue MD Primary Care Provider [phone] Encounter Details Date Type Department Care Team ([facility] st Contact Info) Description 11/17/2024 Orders Only [facility] [address] [place], [place] [phone] Nimco Aldridge Social History Tobacco Use Types [...] Description 06/24/2025 2:30 PM EST Office Visit [facility] OPTOMETRY [address] [place], [place] [phone] Jona, Megan, OD [address] [place] [address] documented as of this encounter Procedures Procedure [...] documented as of this encounter Care Teams Bridge Gang Worker Relationship Specialty Start Date End Date Barbara Blue MD [address] [place] [address] PCP - General Family Medicine 06/20/23 documented as of this encounter
--- OUTSIDE RECORDS SUMMARY | 2025-05-16 18:55 | XMS_ITS | Encounter Summary ---
Author Organization [employer] Address [address] [facility] 7t [place] [address] Care Team Providers Care Eligibility Analyst Name Role Phone Barbara Blue MD Primary Care Provider [phone] Encounter Details Date Type Department Care Team ([facility] st Contact Info) Description 07/23/2024 Orders Only [facility] MEDICINE [address] [place], [place] [phone] Barbara Blue MD [address] [place], [place] [phone] Positive serology for syphilis (Primary Dx) Social [...] Description 06/24/2025 2:30 PM EST Office Visit [facility] OPTOMETRY [address] [place] [address] Jona, Nelli, OD [address] [place] [address] Scheduled Orders Name Type Priority Associated Diagnoses [...] documented as of this encounter Care Teams Eligibility Analyst Relationship Specialty Start Date End Date Barbara Blue MD [address] [place] [address] PCP - General Family Medicine 06/20/23 documented as of this encounter
--- OUTSIDE RECORDS SUMMARY | 2025-05-16 18:55 | XMS_ITS | Encounter Summary ---
Author Organization [employer] Address [address] [place] [address] [address] [place] [address] Care Team Providers Care Coal Wheeler Name Role Phone Barbara Blue MD Primary Care Provider [phone] Reason for Visit * Reason Onset Date Comments Medication Question 01/19/2025 Encounter Details Date Type Department Care Team ([facility] st Contact Info) Description 01/19/[address] [facility] MEDICINE [address] [place], [place] [phone] Barbara Blue MD [address] [place], [place] [phone] Medication Question Social History Tobacco Use Types [...] encounter Miscellaneous Notes * Telephone Encounter - Kroi Vega RN - 01/19/2025 3:06 PM EDT Telephone call returned to patient in regards to below message. Patient can call to ask for medication to transfer. Patient stating she needs a new refill prescribe at the [facility]/pharmacy [address] [place] [address]. Since patient picked up a few pill [...] script to be sent to [facility]/pharmacy [address] [place] [address]. If any questions you can contact pt at [phone]. documented in this encounter Plan of Treatment Upcoming Encounters Date Type Department Care Team (Late st Contact Info) Description 06/24/2025 2:30 PM EST Office Visit [facility] OPTOMETRY [address] [place] [address] Nelli Tenorio, OD [address] [place] [address] documented as of this encounter Visit Diagnoses Not on filedocumented in this encounter Additional Health Concerns Assessment Noted Time PHQ-9 Depression Total Score: 10 024 12:52 PM EST documented as of this encounter Care Teams Coal Wheeler Relationship Specialty Start Date End Date Barbara Blue MD [address] [place] [address] PCP - General Family Medicine 06/20/23 documented as of this encounter
--- OUTSIDE RECORDS SUMMARY | 2025-05-16 18:55 | XMS_ITS | Clinical Summary ---
Author Organization [employer] Address [address] [place] [address] Care Team Providers Care Systems Coordinator Name Role Phone Barbara Blue MD Primary Care Provider [phone] Allergies Active Allergy Reactions Criticality Noted Date Comments Topiramate 03/16/2025 Medications Diclofenac Sodium 1 % gel Apply 2 [...] 2 times daily. Active Blood Pressure Monitor [facility] Check BP daily 1 each 07/15/20 24 Active carBAMazepine XR (TEGretol-XR) 400 MG 12 hr tabletIndicati ons:Seizure (CMS/HCC) (HCC) TAKE 1 TABLET BY MOUTH EVERY MORNING [...] PAIN. 90 tablet 1 04/11/20 25 Active omeprazole (PriLOSEC) [address] capsule Take 1 capsule by mouth at bed time. 025 Discontinued(Me d list cleanup (will not trigger notification to Pharmacy)) Active Problems Problem Noted Date Diagnosed Date [...] Vitamin D supplement. SLE (systemic lupus erythematosus) ([facility]) Assessment & Plan (02/08/2025 8:45 AM EDT): - currently following with [facility], Dr. Leblanc, last seen in November 2023 - current medication: hydroxychloroquine - continue treatment plan per Dr. Leblanc. Patient is considering about second opinion Assessment & Plan (11/17/2024 9:02 AM EDT): - currently following with [facility], Dr. Leblanc, last seen in November 2023 - current medication: hydroxychloroquine - continue treatment plan per Dr. Leblanc. Patient is considering about second opinion Assessment & Plan (07/23/2024 3:33 PM EST): - currently following with [facility]ology, Dr. Leblanc, last seen in November [...] 07/15/24 - behavioral health service provider: [facility] - continue current therapy - continue rowing and being engaged with [facility] Seizure disorder ([facility]) 12/05/2011 Assessment & Plan (02/08/2025 8:45 AM EDT): - following with neurologist, Dr. Iraheta - currently taking carbamazepine - last seizure > 6 mo ago - continue current treatment plan per Dr. Iraheta Assessment & Plan (11/17/2024 9:01 AM EDT): - following with neurologist, Dr. [...] Encounters Date Type Department Care Team Description 05/16/2025 3:00 PM EDT Office Visit [facility] [place] [address] Barbara Blue MD Other fatigue (Primary Dx); Encounter for immunization; Weight gain 05/16/2025 Travel 05/13/2025 Telephone [facility] [place] [address] Barbara Blue MD chart prep 05/09/2025 Patient Outreach [facility] [place] [address] Barbara Blue MD Pre-visit Planning (SDOH screening completed on 11/17/24) 04/29/2025 Results Follow-Up [facility] [place] [address] Karin Ashton CNM BI Mammogram Diagnostic Tomosynthesis Bilateral 04/13/2025 Orders Only [facility] [place] [address] Kairn Ashton CNM 04/11/2025 Refill [facility] [place] [address] Barbara Blue MD 04/11/2025 Refill [facility] [place] [address] Angeles Yi ANP 03/22/2025 11:15 AM EDT Office Visit [facility] [place] [address] Angeles Yi ANP Rash (Primary Dx) 03/22/2025 Travel 03/21/2025 Travel 03/16/2025 Telephone [facility] MEDICINE [address] [place] [address] Barbara Blue MD Appointment Request 03/15/2025 Telephone [facility] MEDICINE [address] [place] [address] Kody Clark MD chart prep 03/15/2025 Telephone [facility] [address] [place] [address] Barbara Blue MD Nurse Triage from Last 3 Months Immunizations Immunization Administration [...] 24 05/16/2025 3:17 PM EDT Oxygen Saturation 100% 03/22/2025 11: 15 AM EDT Inhaled Oxygen Concentration - - Weight 70.7 kg (155 lb 12.8 oz) 05/16/2025 3:17 PM EDT Height 157.5 cm (5' 2 ) 05/16/2025 3:17 PM EDT Body Mass Index 28.5 05/16/2025 3:17 PM EDT Plan of Treatment Upcoming Encounters Date Type Department Care Team (Late st Contact Info) Description 06/24/2025 2:30 PM EST Office Visit [facility] OPTOMETRY [address] [place] [address] JonaArmanin, OD [address] [place] [address] Health Maintenance Due Date Last Done Comments HPV Vaccines (1 - 3-dose series) 01/01/1996 Influenza Vaccine (#1) 2025 , 04/24/2020, 05/05/2019, Additional history exists Alcohol/Substance Use Screening 07/15/2025 07/15/2024 Family Planning (PISQ) 08/03/2025 08/03/2024 Depression Monitoring 11/14/2025 05/16/2025, 025 SDOH Screening 11/17/2025 11/17/2024 Disability Screening 02/07/2026 02/07/2025 Tobacco Screening 05/16/2026 05/16/2025 Mammogram 04/13/2027 04/13/2025, 03/22, 08/14/2021, Additional history exists Cervical Cancer Screening 08/03/2029 HPV/Cotest 08/03/2029 08/03/2024 [...] 05/16/2025 4 :02 PM EDT Weight gain COMPREHENSIVE METABOLIC PANEL Routine 05/16/2025 4:02 PM EDT Weight gain CBC WITH AUTO DIFFERENTIAL Routine 05/16/2025 4:02 PM EDT Weight gain BI US BREAST LIMITED RIGHT Routine 04/13/2025 1:45 PM EDT BI MAMMOGRAM DIAGNOSTIC TOMOSYNTHESIS BILATERAL Urgent 04/13/2025 1:00 PM EDT Mass of upper inner quadrant of right breast HPV MRNA E6/E7 REFLEX TO HPV 16, 18/45 Routine 08/03/2024 12:00 AM EST PAP SMEAR Routine 08/03/2024 12:00 AM EST Routine cervical smear HEPATITIS C AB W/REFL TO HCV RNA, QN, PCR Routine 07/15/2024 1:38 PM EST Routine screening for STI (sexually transmitted infection) HIV 1/2 ANTIGEN/ANTIBODY, FOURTH GENERATION W/RFL Routine 07/15/2024 1:38 PM EST Routine screening for STI (sexually transmitted infection) from Last 3 Months or Most Recently Relevant to Health Maintenance Results * TSH with Reflex to Free T4 (05/16/2025 4:02 PM EDT) TSH reflex Free T4 0.43 0.32 - 4.0 uIU/mL [facility] Blood 05/16/2025 4:02 PM EDT 05/16/2025 5:51 PM EDT us Barbara Blue MD LAB BLOOD ORDERABLES Final Resul t [facility] [address] [place] [phone] * (ABNORMAL) CBC auto differential (05/16/2025 4:02 PM EDT) White Blood Count 5.6 4.8 - 10.8 X10*3/uL [facility] Red Blood Count 4.04(L) 4.20 - 5.50 X10*6/uL [facility] Hemoglobin 11.9(L) 12.0 - 16.0 g/dl [facility] Hematocrit 35.8(L) 37.0 - 47.0 % [facility] Mean Corpuscular Volume 88.6 80.0 - 98.0 fL [facility] Mean Corpuscular Hemoglobin 29.5 27.0 - 33.0 pg [facility] Mean Corpuscular HGB Conc 33.2 31.0 - 35.0 g/dl [facility] Red Cell Distribution Width 13.3 11.0 - 16.0 % [facility] Platelet Count 273 160 - 400 X10*3/uL [facility] Mean Platelet Volume 9.3(L) 9.4 - 12.3 fL [facility] Neutrophils Percent Auto 51.3 45 - 73 % [facility] Imm Gran Pct Auto 0.2 0.0 - 0.4 % [facility] Lymphocytes Percent Auto 37.2 20 - 40 % [facility] Monocytes Percent Auto 9.7 2 - 11 % [facility] Eosinophils Percent Auto 0.9 0 - 4 % [facility] Basophils Percent Auto 0.7 0 - 2 % [facility] NRBC Pct Auto 0.0 0.0 - 0.2 /100WBC [facility] Neutrophils Absolute Auto 2.9 2.0 - 8.3 x10*3/uL [facility] Imm Gran Abs Auto 0.01 0.00 - 0.03 X10*3/uL [facility] Lymphocytes Absolute Auto 2.1 1.2 - 4.9 X10*3/uL [facility] Monocytes Absolute Auto 0.5 0.1 - 1.2 X10*3/uL [facility] Eosinophils Absolute Auto 0.1 0.0 - 0.4 X10*3/uL [facility] Basophils Absolute Auto 0.0 0.0 - 0.2 X10*3/uL [facility] NRBC Abs Auto 0.000 0.0 - 0.012 X10*3/uL [facility] Blood Venous blood specimen / Unknown 05/16/2025 4:02 PM EDT 05/16/2025 5:51 PM EDT us Barbara Blue MD LAB BLOOD ORDERABLES Final Resul t [facility] [address] [place] [phone] [phone] * (ABNORMAL) Comprehensive Metabolic Panel (05/16/2025 4:02 PM EDT) Sodium 137 135 - 145 mmol/L [facility] Potassium 4.2 3.3 - 5.1 mmol/L [facility] Chloride 103 96 - 108 mmol/L [facility] Carbon Dioxide 28 22 - 29 mmol/L [facility] Anion Gap 10(L) 12 - 20 [facility] Urea Nitrogen (BUN) 11 9 - 16 mg/dL [facility] Creatinine, Serum 0.60 0.5 - 1.4 mg/dL [facility] Estimated Glomerular Filt Rate >60 [facility] Comment:Chronic Kidney Disea se: Estimated GFR < 60 mL/min/1.75r0Absvgf Kidney Disease: Estimated GFR < 15 mL/min/1.73m2 Glucose 90 60 - 115 mg/dL [facility] Calcium 8.8 8.4 - 10.2 mg/dL [facility] Bilirubin, Total 0.1 0.0 - 1.0 mg/dL [facility] Aspartate Amino Transferase 17 5 - 31 U/L [facility] Alanine Aminotransferase 23 0 - 31 U/L [facility] Total Protein 7.4 6.5 - 8.0 g/dL [facility] Albumin Level 4.5 3.5 - 5.0 g/dL [facility] Alkaline Phosphatase 80 39 - 117 U/L [facility] Blood Venous blood specimen / Unknown 05/16/2025 4:02 PM EDT 05/16/2025 5:51 PM EDT Barbara Blue MD LAB BLOOD ORDERABLES Final Resul t [facility] [address] [place] [phone] [phone] * BI US Breast Limited Right (04/13/2025 1:45 PM EDT) Anatomical Region Laterality Modality Breast Right Ultrasound 04/13/2025 1:45 PM EDT Narrative 04/29/2025 11:23 AM EDT [address] [place] [address] Ultrasound Report Signed Patient: Neisha Gutiérrez MR#: [id number] : 1980 Acct:[id number] Age/Sex: 44 / F ADM Date: 04/13/25 Loc: [facility] Attending Dr: Karin Ashton CNM Ordering Physician: KARIN ASHTON CNM Date of Service: 04/13/25 Procedure(s): US Breast RT Limited Mamm Only Accession Number(s): [id number] cc: KARIN ASHTON CNM; Barbara Blue MD Reason for Exam: RT BR LUMP UIQ EXAMINATION: MM DIAGNOSTIC DIGITAL BREAST TOMOSYNTHESIS, BILATERAL CLINICAL INFORMATION: Right breast pain. Physician felt palpable lump upper inner quadrant right breast. Bilateral itchy nipples. COMPARISON: Mammography: Comparison is made with relevant prior exams. TECHNIQUE: Digital breast mammography with tomosynthesis is performed in both the craniocaudal and mediolateral oblique views along with computer-aided detection (CAD). FINDINGS: The breasts are heterogeneously dense, which may obscure small masses. Left: There are no significant masses, abnormal calcifications, or other abnormalities. Targeted color Doppler ultrasound scanning in the retroareolar region area of nipple itchiness demonstrates normal fibronodular breast tissue. There is no sonographic abnormal finding. Right: Previously seen asymmetry on prior mammogram 2021 medial breast posterior depth on CC view not significantly changed from priors dating back for more than 2 years and therefore benign. No suspicious masses calcifications or other abnormal findings. Targeted color Doppler ultrasound scanning in the area of the patient's right breast pain upper outer quadrant demonstrates an incidental solid mass versus complicated cyst at 10:00 6 cm from the nipple measuring 7 x 3 x 7 mm. Otherwise there is normal fibroglandular breast tissue. Targeted color Doppler ultrasound scanning in the area of the physician felt palpable lump 12-3 o'clock upper inner quadrant demonstrates normal fibroglandular breast tissue. Targeted color Doppler ultrasound scanning in the retroareolar region area of patient's nipple itchiness demonstrates normal fibroglandular breast tissue. Results are provided to the patient at time of visit by the technologist. US/US Breast RT Limited Mamm Only IMPRESSION: Left: No mammographic or sonographic abnormal finding to account for the patient's left breast nipple itchiness. Recommend clinical evaluation follow-up. Right: 1. No mammographic or sonographic abnormal finding to account for the patient's upper outer quadrant right breast pain. Recommend clinical evaluation and follow-up. 2. Solid mass versus complicated cyst in the right breast at 10:00 6 cm from nipple. Recommend 6 month follow-up ultrasound for further evaluation of stability. 3. No mammographic or sonographic abnormal finding to account for the physician felt palpable lump in the upper inner quadrant. Recommend clinical evaluation follow-up. ASSESSMENT: BI-RADS Category 3: Probably benign RECOMMENDATION: 6 Month F/U This patient's information was entered into a reminder system with a target due date for their next mammogram. Electronically signed by: Angelina Price DO 04/13/2025 02:24 PM EDT Dictated By: Angelina Price DO Signed By: <Electronically signed by Angelina Price DO in OV> 04/13/25 1424 DD/ 1345 TD/TT: 04/13/25 1400 Care Coordinator: Procedure Note Donotuseinterpreter, Image - 04/29/2025 [facility] [address] [place] [address] Dr[place], [place] [address] Ultrasound Report Signed Patient: Mable Gutiérrez#: [id number] : 1980Acct:[id number] Age/Sex: 44 / FADM Date: 04/13/25 Loc: HO.MAMMO Attending Dr: Karin Ashton CNM Ordering Physician: KARIN ASHTON CNM Date of Service: 04/13/25 Procedure(s): US Breast RT Limited Mamm Only Accession Number(s): [id number] cc: KARIN ASHTON CNM; Barbara Blue MD Reason for Exam: RT BR LUMP UIQ EXAMINATION: MM DIAGNOSTIC DIGITAL BREAST TOMOSYNTHESIS, BILATERAL CLINICAL INFORMATION: Right breast pain. Physician felt palpable lump upper inner quadrant right breast. Bilateral itchy nipples. COMPARISON: Mammography: Comparison is made with relevant prior exams. TECHNIQUE: Digital breast mammography with tomosynthesis is performed in both the craniocaudal and mediolateral oblique views along with computer-aided detection (CAD). FINDINGS: The breasts are heterogeneously dense, which may obscure small masses. Left: There are no significant masses, abnormal calcifications, or other abnormalities. Targeted color Doppler ultrasound scanning in the retroareolar region area of nipple itchiness demonstrates normal fibronodular breast tissue. There is no sonographic abnormal finding. Right: Previously seen asymmetry on prior mammogram 2021 medial breast posterior depth on CC view not significantly changed from priors dating back for more than 2 years and therefore benign. No suspicious masses calcifications or other abnormal findings. Targeted color Doppler ultrasound scanning in the area of the patient's right breast pain upper outer quadrant demonstrates an incidental solid mass versus complicated cyst at 10:00 6 cm from the nipple measuring 7 x 3 x 7 mm. Otherwise there is normal fibroglandular breast tissue. Targeted color Doppler ultrasound scanning in the area of the physician felt palpable lump 12-3 o'clock upper inner quadrant demonstrates normal fibroglandular breast tissue. Targeted color Doppler ultrasound scanning in the retroareolar region area of patient's nipple itchiness demonstrates normal fibroglandular breast tissue. Results are provided to the patient at time of visit by the technologist. US/US Breast RT Limited Mamm Only IMPRESSION: Left: No mammographic or sonographic abnormal finding to account for the patient's left breast nipple itchiness. Recommend clinical evaluation follow-up. Right: 1. No mammographic or sonographic abnormal finding to account for the patient's upper outer quadrant right breast pain. Recommend clinical evaluation and follow-up. 2. Solid mass versus complicated cyst in the right breast at 10:00 6 cm from nipple. Recommend 6 month follow-up ultrasound for further evaluation of stability. 3. No mammographic or sonographic abnormal finding to account for the physician felt palpable lump in the upper inner quadrant. Recommend clinical evaluation follow-up. ASSESSMENT: BI-RADS Category 3: Probably benign RECOMMENDATION: 6 Month F/U This patient's information was entered into a reminder system with a target due date for their next mammogram. Electronically signed by: Angelina Price DO 04/13/2025 02:24 PM EDT Dictated By: Angelina Price DO Signed By: <Electronically signed by Angelina Price DO in OV> 04/13/25 1424 DD/ 1345 TD/TT: 04/13/25 1400 Care Coordinator: us Karin Ashton CNM IMG US PROCEDURES Edited Result - Final * BI Mammogram Diagnostic Tomosynthesis Bilateral (04/13/2025 1:00 PM EDT) Anatomical Region Laterality Modality Breast Bilateral Mammography 04/13/2025 1:00 PM EDT Narrative 04/29/2025 11:23 AM EDT [facility] [address] [place] [address] Mammography Report Signed Patient: Neisha Gutiérrez MR#: [id number] : 1980 Acct:[id number] Age/Sex: 44 / F ADM Date: 04/13/25 Loc: HO.MAMMO Attending Dr: Karin Ashton CNM Ordering Physician: KARIN ASHTON CNM Results: 3 Probably Benign Date of Service: 04/13/25 Follow Up: 6 Month F/U Procedure(s): MM tomosynthesis diagnostic BI Accession Number(s): [id number] cc: KARIN ASHTON CNM; Barbara Blue MD Reason For Exam: RT BR LUMP UIQ EXAMINATION: MM DIAGNOSTIC DIGITAL BREAST TOMOSYNTHESIS, BILATERAL CLINICAL INFORMATION: Right breast pain. Physician felt palpable lump upper inner quadrant right breast. Bilateral itchy nipples. COMPARISON: Mammography: Comparison is made with relevant prior exams. TECHNIQUE: Digital breast mammography with tomosynthesis is performed in both the craniocaudal and mediolateral oblique views along with computer-aided detection (CAD). FINDINGS: The breasts are heterogeneously dense, which may obscure small masses. Left: There are no significant masses, abnormal calcifications, or other abnormalities. Targeted color Doppler ultrasound scanning in the retroareolar region area of nipple itchiness demonstrates normal fibronodular breast tissue. There is no sonographic abnormal finding. Right: Previously seen asymmetry on prior mammogram 2021 medial breast posterior depth on CC view not significantly changed from priors dating back for more than 2 years and therefore benign. No suspicious masses calcifications or other abnormal findings. Targeted color Doppler ultrasound scanning in the area of the patient's right breast pain upper outer quadrant demonstrates an incidental solid mass versus complicated cyst at 10:00 6 cm from the nipple measuring 7 x 3 x 7 mm. Otherwise there is normal fibroglandular breast tissue. Targeted color Doppler ultrasound scanning in the area of the physician felt palpable lump 12-3 o'clock upper inner quadrant demonstrates normal fibroglandular breast tissue. Targeted color Doppler ultrasound scanning in the retroareolar region area of patient's nipple itchiness demonstrates normal fibroglandular breast tissue. Results are provided to the patient at time of visit by the technologist. MM/MM tomosynthesis diagnostic BI IMPRESSION: Left: No mammographic or sonographic abnormal finding to account for the patient's left breast nipple itchiness. Recommend clinical evaluation follow-up. Right: 1. No mammographic or sonographic abnormal finding to account for the patient's upper outer quadrant right breast pain. Recommend clinical evaluation and follow-up. 2. Solid mass versus complicated cyst in the right breast at 10:00 6 cm from nipple. Recommend 6 month follow-up ultrasound for further evaluation of stability. 3. No mammographic or sonographic abnormal finding to account for the physician felt palpable lump in the upper inner quadrant. Recommend clinical evaluation follow-up. ASSESSMENT: BI-RADS Category 3: Probably benign RECOMMENDATION: 6 Month F/U This patient's information was entered into a reminder system with a target due date for their next mammogram. Electronically signed by: Angelina Price DO 04/13/2025 02:24 PM EDT RP Dictated By: Angelina Price DO Signed By: <Electronically signed by Angelina Price DO in OV> 04/13/25 1424 DD/ 1300 TD/TT: 04/13/25 1326 Care Coordinator: Procedure Note Donotuseinterpreter, Image - 04/29/2025 [facility] [address] [place] [address] Mammography Report Signed Patient: Mable Gutiérrez#: [id number] : 1980Acct:[id number] Age/Sex: 44 / FADM Date: 04/13/25 Loc: HO.MAMMO Attending Dr: Karin Ashton CNM Ordering Physician: KARIN ASHTONesults: 3 Probably Benign Date of Service: 04/13/25Follow Up: 6 Month F/U Procedure(s): MM tomosynthesis diagnostic BI Accession Number(s): [id number] cc: KARIN ASHTON CNM; Barbara Blue MD Reason For Exam: RT BR LUMP UIQ EXAMINATION: MM DIAGNOSTIC DIGITAL BREAST TOMOSYNTHESIS, BILATERAL CLINICAL INFORMATION: Right breast pain. Physician felt palpable lump upper inner quadrant right breast. Bilateral itchy nipples. COMPARISON: Mammography: Comparison is made with relevant prior exams. TECHNIQUE: Digital breast mammography with tomosynthesis is performed in both the craniocaudal and mediolateral oblique views along with computer-aided detection (CAD). FINDINGS: The breasts are heterogeneously dense, which may obscure small masses. Left: There are no significant masses, abnormal calcifications, or other abnormalities. Targeted color Doppler ultrasound scanning in the retroareolar region area of nipple itchiness demonstrates normal fibronodular breast tissue. There is no sonographic abnormal finding. Right: Previously seen asymmetry on prior mammogram 2021 medial breast posterior depth on CC view not significantly changed from priors dating back for more than 2 years and therefore benign. No suspicious masses calcifications or other abnormal findings. Targeted color Doppler ultrasound scanning in the area of the patient's right breast pain upper outer quadrant demonstrates an incidental solid mass versus complicated cyst at 10:00 6 cm from the nipple measuring 7 x 3 x 7 mm. Otherwise there is normal fibroglandular breast tissue. Targeted color Doppler ultrasound scanning in the area of the physician felt palpable lump 12-3 o'clock upper inner quadrant demonstrates normal fibroglandular breast tissue. Targeted color Doppler ultrasound scanning in the retroareolar region area of patient's nipple itchiness demonstrates normal fibroglandular breast tissue. Results are provided to the patient at time of visit by the technologist. MM/MM tomosynthesis diagnostic BI IMPRESSION: Left: No mammographic or sonographic abnormal finding to account for the patient's left breast nipple itchiness. Recommend clinical evaluation follow-up. Right: 1. No mammographic or sonographic abnormal finding to account for the patient's upper outer quadrant right breast pain. Recommend clinical evaluation and follow-up. 2. Solid mass versus complicated cyst in the right breast at 10:00 6 cm from nipple. Recommend 6 month follow-up ultrasound for further evaluation of stability. 3. No mammographic or sonographic abnormal finding to account for the physician felt palpable lump in the upper inner quadrant. Recommend clinical evaluation follow-up. ASSESSMENT: BI-RADS Category 3: Probably benign RECOMMENDATION: 6 Month F/U This patient's information was entered into a reminder system with a target due date for their next mammogram. Electronically signed by: Angelina Price DO 04/13/2025 02:24 PM EDT Dictated By: Angelina Price DO Signed By: <Electronically signed by Angelina Price DO in OV> 04/13/25 1424 DD/ 1300 TD/TT: 04/13/25 1326 Care Coordinator: Karin Ashton CNM IMG BI PROCEDURES Edited Result - Final * HPV mRNA E6/E7 w/Reflex to HPV Genotypes 16, 18/45 (08/03/2024 12:00 AM EST) Historical Provider MD LAB CYTOLOGY ORDERABLES F inal Result * Pap Smear (08/03/2024 12:00 AM EST) Swab Cervix uteri structure / Unknown 08/03/2024 08/04/2024 6:20 AM EST Narrative [facility] - 08/10/2024 2:17 PM EST ----- ------- Name: Neisha Gutiérrez Age/Sex: 43/F : 1980 Unit#: [id number] Attend Dr: KARIN ASHTON CNM Re08/03/24 Status: DEP [facility] Disch[facility] ----- ------- SPEC : [id number] RECD: 08/04/24 STATUS: KYLIEMelissa KEKE NUM: [id number] BETHANY: 08/03/24-[address]: KARIN ASHTON CNM ENTERED: 08/04/2444 SP TYPE: Pap Smr OTHR : ORDERED: Pap Smear Interpretation Satisfactory for evaluation. Negative for intraepithelial lesion or malignancy. Coccobacilli consistent with shift in vaginal catherine. HPV High Risk: Negative HPV Genotyping 16: Negative HPV Genotyping 18: Negative Clinical Information LMP: 07/24/24 Previous PAP test: 2020 NIL Other surgery: Other history: IUD Material Received ThinPrep-Cervix ----- ------- Signed (signature on file) Antonio ZIYAD Neumann ([facility]) 08/10/24 1417 ----- ------- END OF REPORT Karin Ashton CNM LAB CYTOLOGY ORDERABLES F inal Result Performing Organization Address [facility] Co de Phone Number [facility] [address] [place] [address] [phone] * Hepatitis C Antibody with Reflex to HCV, RNA, Quantitative, Real-Time PCR (07/15/2024 1:38 PM EST) Pathologist [facility] Hepatitis C Antibody Nonreactive Nonreactive [facility] Comment:Antibodies to HCV no t detected; does not exclude early acuteHCV infection. Blood Venous blood specimen / Unknown 07/15/2024 1:38 PM EST 07/15/2024 4:01 PM EST Barbara Blue MD LAB BLOOD ORDERABLES Final Resul t Performing Organization Address [facility] Co de Phone Number [facility] [address] [place] [phone] * HIV-1/2 Antigen and Antibodies, Fourth Generation, with Reflexes (07/15/2024 1:38 PM EST) Pathologist [facility] HIV AB/AG Nonreactive Nonreactive [facility] Comment:HIV-1 p24 Ag and/or HIV-1/HIV-2 Ab not detected.A test result that is nonreactive does not exclude thepossibility of exposure to or infection with HIV-1 and/orHIV-2. Nonreactive results in this assay for individualswith prior exposure to HIV-1 and/or HIV-2 may be due toantigen and antibody levels that are below the limit ofdetection of this assay.The [employer] HIV Ag/Ab Combo assay result andsupplemental assay results should be interpreted inconjunction with the patient's clinical presentation,history and other laboratory results. If the results areinconsistent with clinical evidence, additional testing issuggested to confirm the result. Blood Venous blood specimen / Unknown 07/15/2024 1:38 PM EST 07/15/2024 4:01 PM EST us Barbara Blue MD LAB BLOOD ORDERABLES Final Resul t [facility] [address] [place] [phone] from Last 3 Months or Most Recently Relevant to Health Maintenance [facility] [address] [place] [id number] Care Teams Systems Coordinator Relationship Specialty Start Date End Date Barbara Blue MD [address] [place] [phone] PCP - General Family Medicine 06/20/23
--- OUTSIDE RECORDS SUMMARY | 2025-05-16 18:55 | XMS_ITS | Encounter Summary ---
Author Organization [facility] Address [address] [place] [address] Care Team Providers Care Emu Farm Worker Name Role Phone Barbara Blue MD Primary Care Provider [phone] Encounter Details Date Type Department Care Team (Latest Contact Info) Description 05/16/2025 Travel Social History Tobacco Use Types Packs/Day Years [...] AM EDT documented as of this encounter Functional Status * Over the past 2 weeks, how often have you been bothered by any of the following problems? Question Answer Date of Assessment Author Patient Health Questionnaire -2 Score 3 05/16/2025 4:01 PM Ilene Roldan MA * Little interest or pleasure in doing things Answer Date of Assessment Author More than half the days 05/16/2025 4:01 PM LEIGH ANNT Pearl Richmond MA * Feeling down, depressed, or hopeless Answer Date of Assessment Author Several days 05/16/2025 4:01 PM Pearl Roldan MA * Trouble falling or staying asleep, [...] Author Not at all 05/16/2025 4:01 PM EDT Pearl Ha MA * Thoughts that you would be better off or hurting yourself in some way Answer Date of Assessment Author Not at all 05/16/2025 4:01 PM EDT Pearl Ha MA * Patient Health Questionnaire-9 Score Answer Date of Assessment Author 9 05/16/2025 4:01 PM EDT Pearl Ha MA * How difficult have these problems made it for you to do your work, take care of things at home, or get along with other people? Answer Date of Assessment Author Somewhat difficult 05/16/2025 4:01 PM EDT Pearl Alba MA documented as of this encounter Plan of Treatment Upcoming Encounters Date Type Department Care Team (Late st Contact Info) Description 06/24/2025 2:30 PM EST Office Visit [facility] [address] [place] [address] Nelli Tenorio, OD [address] [place] [address] documented as of this encounter Visit Diagnoses Not on filedocumented in this encounter Additional Health Concerns Assessment Noted Time PHQ-9 Depression Total Score: 9 05/16/20 25 4:01 PM EDT documented as of this encounter Care Teams Emu Farm Worker Relationship Specialty Start Date End Date Barbara Blue MD [address] [place] [address] PCP - General Family Medicine 06/20/23 documented as of this encounter
--- OUTSIDE RECORDS SUMMARY | 2025-05-16 18:55 | XMS_ITS | Encounter Summary ---
Author Organization [employer] Address [address] [place] [address] [address] [place] [address] Care Team Providers Care Reports Developer Name Role Phone Barbara Blue MD Primary Care Provider [phone] Reason for Visit * Reason Onset Date Comments chart prep 05/13/2025 Encounter Details Date Type Department Care Team ([facility] st Contact Info) Description 05/13/2025 Telephone [facility] [address] [place], [place] [phone] Barbara Blue MD [address] [place], [place] [phone] chart prep Social History Tobacco Use Types Packs/Day Years [...] encounter Miscellaneous Notes * Telephone Encounter - Farzad Baird MA - 05/13/2025 3:05 PM EDT Chart Prep Labs: not applicable Images: done Referrals: please give copy of ENT referral to pt. Vaccines due: Flu and HPV Screenings: LMP Overdue care gaps: PHQ-9 documented in this encounter Plan of Treatment Upcoming Encounters Date Type Department Care Team (Late st Contact Info) Description 06/24/2025 2:30 PM EST Office Visit [facility] [address] [place] [address] Jona, Nelli, OD [address] [place] [address] documented as of this encounter Visit Diagnoses Not on filedocumented in this encounter Additional Health Concerns Assessment Noted Time PHQ-9 Depression Total Score: 10 024 12:52 PM EST documented as of this encounter Care Teams Reports Developer Relationship Specialty Start Date End Date Barbara Blue MD [address] [place] [address] PCP - General Family Medicine 06/20/23 documented as of this encounter
--- OUTSIDE RECORDS SUMMARY | 2025-05-16 18:55 | XMS_ITS | Encounter Summary ---
Author Organization [employer] Address [address] [place] [address] [address] [place] [address] Care Team Providers Care News Analyst Name Role Phone Barbara Blue MD Primary Care Provider [phone] Reason for Visit * Reason Onset Date Comments Appointment Request 11/15/2024 Encounter Details Date Type Department Care Team ([facility] st Contact Info) Description 11/15/2024 Telephone [facility] [address] [place], [place] [phone] Barbara Blue MD [address] [place], [place] [phone] Appointment Request Social History Tobacco Use Types [...] rv bp and sle appointment with pcp. [phone] documented in this encounter Plan of Treatment Upcoming Encounters Date Type Department Care Team (Late st Contact Info) Description 06/24/2025 2:30 PM EST Office Visit [facility] [address] [place], [place] [phone] Nelli Tenorio, OD [address] [place] [address] documented as of this encounter Visit Diagnoses Not on filedocumented in this encounter Additional Health Concerns Assessment Noted Time PHQ-9 Depression Total Score: 10 024 12:52 PM EST documented as of this encounter Care Teams News Analyst Relationship Specialty Start Date End Date Barbara Blue MD [address] [place] [address] PCP - General Family Medicine 06/20/23 documented as of this encounter
[2025-05-16 19:00] LABS: Folate 10.7 ng/mL (> or = 4.0); Vitamin B12 > 2000 pg/mL (200-900)
== END 2025-05-16 15:56 | disposition home or self-care (01) ==
LOC: HO.HHCL 15:55
PROVIDERS: PCP Family Medicine; Visit Provider Family Medicine
DX: Z11.3 Encounter for screening for infections with a predominantly sexual mode of transmission (principal); R63.5 Abnormal weight gain; A53.0 Latent syphilis, unspecified as early or late; R53.83 Other fatigue
CPT/HCPCS: 36415; 80053; 82607; 82746; 84443; 85025; 86592